=== PATIENT | female | born 1945 | race Caucasian/White ===

== ENCOUNTER → 2018-08-14 16:37 | Outpatient (CLI) | payer MEDICARE, OTHER, SELFPAY ==
--- NOTE | 2018-08-14 16:47 | RAD_ITS ---
STUDY: X-RAY CHEST REASON FOR EXAM: Female, 73 years old. Shortness of breath. TECHNIQUE: Frontal and lateral views of the chest. COMPARISON: None. FINDINGS: The lungs are hyperexpanded. There is no demonstrated pleural abnormality. There is borderline cardiomegaly. Normal mediastinum and cee. Normal visualized pulmonary arteries. Normal visualized aortic arch and descending thoracic aorta. Normal visualized thoracic spine. Normal visualized ribs, clavicles, and shoulders. There is no demonstrated abnormality of the visualized soft tissue structures of the upper abdomen. RAD/Chest PA and Lateral IMPRESSION: Borderline cardiomegaly with hyperexpansion. No acute pathology. Electronically Signed: Albert Chakraborty MD at 17:55 EDT , Service support ,
== END ==
PROVIDERS: Family Provider Internal Medicine; PCP Internal Medicine; Referring Provider Internal Medicine Pulmonary Disease; Visit Provider Internal Medicine Pulmonary Disease
DX: J44.9 Chronic obstructive pulmonary disease, unspecified (principal)
CPT/HCPCS: 71046

== ENCOUNTER → 2018-08-22 07:42 | Outpatient (CLI) | payer MEDICARE, OTHER, SELFPAY ==
--- NOTE | 2018-08-22 07:45 | CT_ITS ---
STUDY: CT ABDOMEN AND PELVIS WITH CONTRAST REASON FOR EXAM: Female, 73 years old. Soft tissue nodule felt by left abdominal area RADIATION DOSAGE (If Supplied By Facility): CTDIvol = ( 10.09 ) mGy, DLP = ( 715.30 ) mGycm TECHNIQUE: Transaxial images were obtained from the dome of the diaphragm to the symphysis pubis without oral contrast. 100 ml of Isovue 300 contrast was administered. Sagittal and coronal images were reconstructed. # of Images: 422 Individualized dose optimization techniques were used for this CT. COMPARISON: None. FINDINGS: The visualized lung bases are unremarkable. The visualized portions of the heart are within normal limits. Normal liver. There are surgical clips in the gallbladder fossa consistent with a prior cholecystectomy. Normal spleen. Normal pancreas. Normal bilateral adrenal glands. There are too small to characterize low-attenuation foci within the kidneys that likely reflect underlying cysts. There is a small hiatal hernia. Normal small intestine. There are diverticula throughout the descending and sigmoid colon. The appendix is visualized and appears normal. Normal abdominal aorta. Normal inferior vena cava. Normal retroperitoneum. Normal urinary bladder. There is a small umbilical hernia containing fat. There are diffuse degenerative changes of the visualized lumbar spine. CT/Abdomen/Pelvis WITH Contrast IMPRESSION: Small fat-containing umbilical hernia. Atherosclerosis. Colonic diverticulosis. Degenerative changes. Small hiatal hernia. Electronically Signed: Isidra Carrasco MD at 16:55 EDT Tel , Service support ,
[2018-08-22 08:36] LABS: CREATININE FINGERSTICK 0.7 mg/dL (0.55-1.02); EGFR FINGERSTICK > 60.0000 mL/min (>60)
== END ==
PROVIDERS: Family Provider Internal Medicine; PCP Internal Medicine; Referring Provider Internal Medicine; Visit Provider Internal Medicine
DX: Z01.812 Encounter for preprocedural laboratory examination (principal); M79.89 Other specified soft tissue disorders
CPT/HCPCS: 74177; Q9967

== ENCOUNTER → 2018-11-09 14:38 | Outpatient (CLI) | payer MEDICARE, OTHER, SELFPAY ==
--- NOTE | 2018-11-09 14:42 | BI_ITS ---
MAMMOGRAPHY - BILATERAL SCREENING REASON FOR EXAM: Female, 73 years old. Routine annual screening examination. PERTINENT HISTORY: Non-contributory. TECHNIQUE: Digital bilateral breast [place] (3D mammographic acquisition) in the CC and MLO projections. 2-D mediolateral oblique (MLO) and craniocaudad (CC) views of both breasts were obtained. CAD: Full Field Digital Mammography with Computer Added Detection was performed. COMPARISON: Comparison is made with prior outside examination dated May 26, 2013 and November 09, 2015 FINDINGS: Breast Composition: There are scattered areas of fibroglandular density. There are no dominant masses or suspicious calcifications. Stable small bilateral axillary lymph nodes. No other significant abnormalities are identified. There has been no significant change since the prior study. BI/SCREENING MAMM (CAD), BILAT IMPRESSION: Stable bilateral screening mammogram. Yearly follow-up mammogram recommended. (A) ASSESSMENT CATEGORY: BIRADS Category 2: Benign. A letter regarding these results will be sent to the patient by the facility within 30 days. Approximately 10% of breast cancers are not detected by mammography. A normal mammogram should not delay biopsy of a clinically suspicious abnormality. [id number] Electronically Signed: Amado Soares MD at 15:10 EST Tel [phone], Service support ,
== END ==
PROVIDERS: Family Provider Internal Medicine; PCP Internal Medicine; Referring Provider Internal Medicine; Visit Provider Internal Medicine
DX: Z12.31 Encounter for screening mammogram for malignant neoplasm of breast (principal)
CPT/HCPCS: 77063; 77067

== ENCOUNTER → 2019-06-11 14:31 | Outpatient (CLI) | payer MEDICARE, SELFPAY ==
--- NOTE | 2019-06-11 14:43 | RAD_ITS ---
STUDY: X-RAY - PELVIS AND BILATERAL HIPS REASON FOR EXAM: Female, 74 years old. Bilateral hip pain. TECHNIQUE: AP view of the pelvis.? 2 views of the right hip, and 2 views of the left hip were obtained. COMPARISON: None. FINDINGS: There is a non-specific bowel gas pattern. Normal visualized soft tissue structures. Normal bilateral iliac wings, sacroiliac joints and visualized sacrum. Normal bilateral superior and inferior pubic rami. Normal pubic symphysis. Normal bilateral ischial tuberosities. Normal visualized right femoral head. Normal right acetabulum. Normal right hip joint. Normal visualized left femoral head. Normal left acetabulum. Normal left hip joint. RAD/Hips B/L min 2 views w/ Pelvis IMPRESSION: Normal x-ray examination of the pelvis and bilateral hips. Electronically Signed: Aly Porras MD at 17:05 EDT , Service support ,
== END ==
PROVIDERS: Family Provider Internal Medicine; PCP Internal Medicine
DX: M25.551 Pain in right hip (principal); M25.552 Pain in left hip
CPT/HCPCS: 73521

== ENCOUNTER 2019-07-18 13:23 | Observation (INO) | payer MEDICARE, SELFPAY ==
[2019-07-18] VITALS (9 sets, daily range): BP systolic 104–141; BP diastolic 65–104; PULSE 59–91; RESP 12–16; TEMP 36.4–36.9; O2SAT 95–100; BMI 28.5; BMI 28.6; BMI 28.4
--- NOTE | 2019-07-18 13:48 | RAD_ITS ---
STUDY: X-RAY CHEST REASON FOR EXAM: Female, 74 years old. Possible TIA. TECHNIQUE: PA and lateral views of the chest. COMPARISON: Comparison is made with prior study dated August 14, 2018. FINDINGS: EKG electrodes are seen. Hyperinflation. The lungs are clear. There is no demonstrated pleural abnormality. There is borderline cardiomegaly. Normal mediastinum and cee. Normal visualized pulmonary arteries. There is atherosclerotic calcification of the aortic arch with tortuosity. There are diffuse degenerative changes of the visualized thoracic spine. Normal visualized ribs, clavicles, and shoulders. There is no demonstrated abnormality of the visualized soft tissue structures of the upper abdomen. RAD/Chest PA and Lateral IMPRESSION: Hyperinflation. No acute abnormality is seen. Electronically Signed: Aamdo Soares, at 14:57 EDT , Service support ,
--- NOTE | 2019-07-18 13:48 | CT_ITS ---
STUDY: CT BRAIN WITHOUT CONTRAST REASON FOR EXAM: Female, 74 years old. Amnesia. Loss of bladder control. RADIATION DOSAGE (If Supplied By Facility): CTDIvol = ( 44.99 ) mGy, DLP = ( 745.49 ) mGycm TECHNIQUE: Transaxial CT imaging of the brain was performed without administration of intravenous contrast material. Individualized dose optimization techniques were used for this CT. COMPARISON: No relevant priors. FINDINGS: Normal soft tissue structures. Normal calvarium. There is mild cerebral atrophy with widening of the extra-axial spaces and ventricular dilatation. Normal white matter tracts of the cerebral hemispheres. Normal basal ganglia and thalami. Normal brainstem. Normal cerebellum. There is no intracranial hemorrhage. There are no findings of an acute ischemic infarction. Atherosclerotic calcification of the cavernous portions of the internal carotid arteries bilaterally. Mild mucosal thickening of the left sphenoid sinus. CT/Brain/Head without Contrast IMPRESSION: Chronic involutional changes of the brain. Mild degree of mucosal thickening of the left sphenoid sinus. Electronically Signed: Amado Soares, at 15:00 EDT , Service support ,
--- NOTE | 2019-07-18 13:48 | EKG12_ITS ---
Test Reason : NEURO S/SX Blood Pressure : / mmHG Vent. Rate : 069 BPM Atrial Rate : 069 BPM P-R Int : 152 ms QRS Dur : 092 ms QT Int : 428 ms P-R-T Axes : 037 -19 016 degrees QTc Int : 458 ms Normal sinus rhythm Normal ECG Confirmed by JAMES SWIFT, CAROLA ([id number]), clinical editor AMY DEVLIN ([id number]) on 07/22/2019 3:20:02 PM Referred By: Ruben Cervantes Confirmed By:MACY RAMIREZ MD
[2019-07-18 14:07] LABS: Absolute Lymphocyte Count 1.29 X10^3/uL (0.83-4.51); Absolute Neutrophil Count 3.2 X10^3/uL (2.0-7.7); Basophil# 0.04 X10^3/uL; Basophil% 0.8 % (0-1); Eosinophil# 0.23 X10^3/uL; Eosinophils% 4.3 % (0-5); Hematocrit 43.7 % (37-47); Hemoglobin 14.2 g/dL (12.0-15.0); Lymphocyte # 1.29 X10^3/ul (4.0); Lymphocyte % 24.3 % (19-41); Mean Corp Hgb Conc 32.5 g/dL (32-36); Mean Corpuscular Hgb 29.6 pg (27.0-32.0); Mean Corpuscular Volume 91.2 fL (81-99); Mean Platelet Vol. 9.4 fl (6.2-12.0); Monocyte# 0.54 X10^3/uL; Monocyte% 10.2 % (0-10); NRBC Flagged by Analyzer 0 % (0-5); Neutrophil # 3.18 X10^3/uL (2.7-7.7); Platelet Count 215 K/mm3 (150-450); RBC Distribution Width CV 12.9 % (11.6-14.6); RBC Distribution Width SD 43.6 fl (35.1-43.9); Red Blood Count 4.79 M/mm3 (4.2-5.4); White Blood Count 5.3 K/mm3 (4.4-11.0)
[2019-07-18 14:16] LABS: International Normalized Ratio 0.9; Prothrombin Time (Protime)PT. 12.2 SECONDS (11.7-14.9)
[2019-07-18 14:17] LABS: Partial Thromboplast Time 29.8 Seconds (24.1-36.2)
[2019-07-18 14:22] LABS: ALB/GLOB Ratio 1.1 RATIO (0.9-2.4); AST(SGOT) 20 U/L (15-37); Alanine Aminotransfer ALT/SGPT 30 U/L (13-56); Albumin, Serum 3.8 g/dL (3.2-5.0); Alkaline Phosphatase 81 U/L (45-117); Anion Gap 4 (5-15); BUN 12 mg/dL (7-18); Calcium,Total 9.6 mg/dL (8.5-10.1); Chloride 109 mmol/L (98-107); Creatinine, Serum 0.67 mg/dL (0.55-1.02); EST Glomerular Filtration Rate 93 mL/min (>60); Est Glom Filt Rate - Afr Amer 112 mL/min (>60); Estimated Creatinine Clearance 40.22 ml/min; Globulin 3.5 g/dL (2.2-4.2); Glucose 95 mg/dL (74-106); Potassium 3.8 mmol/L (3.5-5.1); Protein, Total 7.3 g/dL (6.4-8.2); Sodium Level 142 mmol/L (136-145)
[2019-07-18 14:55] LABS: Bacteria 0 SEEN /hpf (None Seen); Mucous, Urine 0 SEEN /hpf (<or=2+)
[2019-07-18 15:13] LABS: Color, Urine Yellow (Yellow); Glucose, Dipstick Normal (Normal); Ketone-Dipstick Negative (Negative); Leukocyte Esterase-Dipstick Negative /ul (Negative); Nitrite-Dipstick Negative (Negative); Occult Blood-Urine Negative /ul (Negative); Protein-Dipstick Negative (Negative); Urine Bilirubin Dipstick Negative (Negative); Urine Clarity Clear (Clear); Urine Urobilinogen Normal (Normal)
--- NOTE | 2019-07-18 15:20 | ED.VIS.GEN ---
History of Present Illness Chief Complaint: Neuro S/Sx Informant: Patient Onset: Today Narrative: Patient sent in from PCP office for evaluation of amnesia event occurring this morning. She reports she left at 830 she left to see a natural path physician in [place] for evaluation. Reports she had concerns for thyroid dysfunction reporting 2 weeks ago was seen found to have abnormal function of thyroid and adrenal glands and was going for reevaluation for possible treatment. She states she does not recall driving to the office, also states her had difficulty turning off her car. Reported she was at the office, did not look well, will was dizzy, slid to the ground for which she does not recall. This was reported by Dr. Silva. Patient reports she is unsteady on her gait. However she was able to drive back to the area and be seen by her physician. Reported to me there is 2 other events of this in the last 14 months which was not evaluated. Patient history of rheumatoid arthritis and COPD. No tobacco history reporting she had lung disease as genetic. Only reports fatigue symptoms. Prior similar symptoms: Yes Past Medical History - Allergies and Home Meds Allergies/Adverse Reactions: Allergies aspirin Allergy (Verified 07/18/19 13:24) Shortness of breath metronidazole [From Flagyl] Allergy (Verified 07/18/19 13:24) Abd cramps/diarrhea Sulfa (Sulfonamide Antibiotics) Allergy (Verified 07/18/19 13:24) Other Primary Care Physician: Gertrude Silva DO [Primary Care Provider] - Smoking Status: Never smoker Review of Systems General: Denies: Chills, Fever, Sweats Eyes: Denies: Visual changes - bilaterally, Diplopia ENT: Denies: Rhinorrhea, Sore throat Cardiovascular: Denies: Chest pain, Palpitations Respiratory: Denies: Dyspnea, Cough, Dyspnea on exertion Gastrointestinal: Denies: Abdominal pain, Nausea, Vomiting, Diarrhea, Melena, Hematochezia Genitourinary: Denies: Dysuria, Hematuria, Frequency Musculoskeletal: Denies: Back pain, Extremity Pain Skin: Denies: Rash, Wounds Neurological: Reports: Weakness. Denies: Headache, Numbness Physical Exam Vital Signs/Narrative: Vital Signs Temp Pulse Resp BP Pulse Ox 07/18/19 14:51 64 16 141/104 H 97 07/18/19 13:50 71 12 97 07/18/19 13:25 98.4 F 73 16 136/83 H 97 Inital Vital Signs reviewed: Yes General: Well nourished, Well developed, No Acute Distress Head: Normocephalic, Atraumatic Eyes: Perrl, EOMI ENT: Moist mucous membranes, No rhinorrhea Neck: Supple, Nontender Cardiovascular: Regular rate, Regular rhythm, No murmurs Respiratory: No distress, CTA bilaterally, Chest nontender Abdomen: Soft, Nontender, Nondistended, Normal bowel sounds Back: Nontender, Normal Inspection Extremities: Nontender, No edema Skin: Normal color, No rash Neurological: Alert, Oriented x3, Cranial nerves II-XII grossly intact, Normal Strength, Normal Sensation, - - NIH of 0, cerebellar testing upper and lower normal. Psychological: Normal affect, Normal Mood Diagnostic/Tx/Re-eval Clinical Impression(s) from Imaging Studies Brain CT 07/18/19 13:48 IMPRESSION: Chronic involutional changes of the brain. Mild degree of mucosal thickening of the left sphenoid sinus. Electronically Signed: Amado Soares, at 15:00 EDT , Service support , Chest X-Ray 07/18/19 13:48 IMPRESSION: Hyperinflation. No acute abnormality is seen. Electronically Signed: Amado Soares, at 14:57 EDT , Service support , Abnormal Lab Results 07/18/19 07/18/19 07/18/19 13:58 13:58 13:58 WBC 5.3 RBC 4.79 Hgb 14.2 Hct 43.7 MCV 91.2 MCH 29.6 MCHC 32.5 RDW Std Deviation 43.6 RDW Coeff of Jerardo 12.9 Plt Count 215 MPV 9.4 Immature Gran % (Auto) 0.400 Neut % (Auto) 60.0 Lymph % (Auto) 24.3 Nye % (Auto) 10.2 H Eos % (Auto) 4.3 Baso % (Auto) 0.8 Absolute Neuts (auto) 3.2 Absolute Lymphs (auto) 1.29 Nucleated RBC % 0 PT 12.2 INR 0.9 APTT 29.8 Sodium 142 Potassium 3.8 Chloride 109 H Carbon Dioxide 29.0 Anion Gap 4 L BUN 12 Creatinine 0.67 Estim Creat Clear Calc 40.22 Est GFR (MDRD) Af Amer 112 Est GFR (MDRD) Non-Af 93 BUN/Creatinine Ratio 18.0 Glucose 95 Calcium 9.6 Total Bilirubin 0.30 AST 20 ALT 30 Alkaline Phosphatase 81 Total Protein 7.3 Albumin 3.8 Globulin 3.5 Albumin/Globulin Ratio 1.1 Urine Color Urine Clarity Urine pH Ur Specific [place] Urine Protein Urine Glucose (UA) Urine Ketones Urine Occult Blood Urine Nitrite Urine Bilirubin Urine Urobilinogen Ur Leukocyte Esterase 07/18/19 14:44 WBC RBC Hgb Hct MCV MCH MCHC RDW Std Deviation RDW Coeff of Jerardo Plt Count MPV Immature Gran % (Auto) Neut % (Auto) Lymph % (Auto) Nye % (Auto) Eos % (Auto) Baso % (Auto) Absolute Neuts (auto) Absolute Lymphs (auto) Nucleated RBC % PT INR APTT Sodium Potassium Chloride Carbon Dioxide Anion Gap BUN Creatinine Estim Creat Clear Calc Est GFR (MDRD) Af Amer Est GFR (MDRD) Non-Af BUN/Creatinine Ratio Glucose Calcium Total Bilirubin AST ALT Alkaline Phosphatase Total Protein Albumin Globulin Albumin/Globulin Ratio Urine Color Yellow Urine Clarity Clear Urine pH 7.0 Ur Specific [place] 1.010 Urine Protein Negative Urine Glucose (UA) Normal Urine Ketones Negative Urine Occult Blood Negative Urine Nitrite Negative Urine Bilirubin Negative Urine Urobilinogen Normal Ur Leukocyte Esterase Negative Patient currently no focal neurologic deficits. CT head scan did note mildly dilated ventricles per radiologist In the body of read. Chest x-ray labs urine negative. I spoke with neurologist Dr. Buck discussed her previous incidence also, recommended admission for MRI and EEG. I spoke with hospitalist Dr. Cervantes for admission. - EKG Initial EKG Interpretation: Sinus Rhythm - Sinus rate of 69, no ST change. T wave inversion in leads III. ED Disposition - Plan for ED Patient: Disposition: [facility] Diagnosis: Amnesia Referrals: Gertrude Silva DO [Primary Care Provider] -
[2019-07-18 15:28] LABS: Squamous Epithelial Cells - UA 0-5 SEEN /hpf (5-10)
[2019-07-18 15:29] LABS: Red Blood Cells-Urine 0-5 SEEN /hpf (0-5); Transitional Epithelial - Ur 0-5 SEEN /hpf (0-5); White Blood Cells 0-5 SEEN /hpf (0-5)
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
--- NOTE | 2019-07-18 16:34 | CASEMGMT ---
RN CM Assessment Introduced role of RN CM to patient and patient friend at bedside. Patient states okay to discuss assessment questions with friend at bedside.? Patient is alert, oriented and able?to participate in RN CM Assessment. ?Care providers, pharmacy, and demographics verified. Presentation: Patient seen her physician a cpl weeks ago and found to have abnormal function of thyroid and adrenal glands, was driving to her providers office today to discuss these findings further and does not recall driving there, was dizzy at the office, slid to ground and has unsteady gait. Admit Dx: Amnesia Re-Admit: No Barriers/Issues: None PCP: Gertrude Silva Specialists: Pulm- Dr Card, Arthritis- , Ophth- Dr Aburto Preferred Pharmacy: [facility] Insurance: [facility] A[facility], [facility] Rx Benefit:?Yes with [employer] LNOK: Chriss Lance LW/HPOA: Yes both, made aware not on file at [facility] to bring in to have scanned on file. HPOA- Chriss Lance Living Arrangements:?Lives with her in a SS home, 1 step to enter home. ADL?s: Independent with ambulation and ADLs Transportation: Patient and drives, to transport upon DC DME: Nebulizer, denies any other DME. HHC: None SNF: None Goal: Home and does not think will have any needs, Denies any issues, concerns or questions with DC planning at this time. Aware CM remains available for any emerging needs. DC PLAN: Home with no anticipated needs identified at this time. JOSE LUIS Khan
--- NOTE | 2019-07-18 17:21 | MRI_ITS ---
STUDY: MRI BRAIN WITHOUT CONTRAST REASON FOR EXAM: Female, 74 years old. Confusion, amnesia. TECHNIQUE: Standardized multiplanar fat and water weighted pulse sequences were obtained. COMPARISON: None. FINDINGS: No intracranial mass, mass effect, or midline shift. No hemorrhage, territorial infarct, or acute ischemia. There is mild cerebral atrophy with widening of the extra-axial spaces and ventricular dilatation. Normal white matter tracts of the supratentorial brain. There is no extra-axial fluid accumulation. Normal flow voids within the major intracranial circulation suggesting patency by spin echo criteria. Normal sella turcica, pituitary gland, infundibular stalk, optic chiasm and hypothalamus. Normal basal cisterns. Normal bilateral temporal bones. Mild mucosal thickening in the left maxillary and left sphenoid sinus. Normal calvarium and skull base. Normal visualized soft tissue structures. MRI/Brain without Contrast IMPRESSION: Involutional changes of the brain, as described above. Trace chronic sinusitis. Electronically Signed: Mary Griffiths MD at 20:28 EDT Tel , Service support ,
[2019-07-18] MEDS: Montelukast 10 MG Tablet PO (21:05)
[2019-07-18] MEDS: 0.9% NaCl Peripheral Flush Adult/Peds IV (21:06)
[2019-07-18 21:15] LABS: Bedside Glucose 123 mg/dL (70-110)
[2019-07-19 03:00] VITALS: PULSE 63
[2019-07-19 03:10] VITALS: BP 101/62; PULSE 58; RESP 16; TEMP 36.6; O2SAT 96
[2019-07-19 06:40] LABS: Bedside Glucose 90 mg/dL (70-110)
[2019-07-19 07:03] VITALS: PULSE 54
[2019-07-19] MEDS: Meloxicam 7.5 MG Tablet PO (07:59)
[2019-07-19] MEDS: Hydroxychloroquine 200 MG Tablet PO (07:59)
[2019-07-19 09:10] VITALS: BP 106/74; PULSE 64; RESP 16; TEMP 36.7; O2SAT 96
--- NOTE | 2019-07-19 10:41 | CASEMGMT ---
LW in paper chart, POA form not in echart or paper chart. SW let pt know that we have a copy of living will but not POA. SW encouraged pt to have POA form brought in for us to put on file as able. Pt states understanding. FLOR [place]
--- NOTE | 2019-07-19 11:01 | MRI_ITS ---
STUDY: MRA OF THE HEAD WITHOUT CONTRAST REASON FOR EXAM: Female, 74 years old. Confusion. Transient global amnesia. TECHNIQUE: 3-D udup-jb-hhrmja (TOF) imaging was performed with MIPs. The study was performed unenhanced. COMPARISON: None. FINDINGS: Normal bilateral petrous and cavernous carotid arteries. Normal bilateral anterior cerebral arteries, with no aneurysm, dissection, stenosis or occlusion. Normal intact anterior communicating artery (ACOM). Unremarkable bilateral middle cerebral arteries, with no aneurysm, dissection, stenosis, or occlusion. Normal posterior communicating arteries bilaterally. Normal bilateral vertebral arteries. Normal basilar artery with a normal basilar bifurcation. The visualized bilateral superior cerebellar (SCA) arteries are normal. Normal bilateral P1, P2 and visualized P3 segments of the posterior cerebral arteries. There is no demonstrated aneurysm of the gambell of [place]. There is no major vessel occlusion or significant stenosis. MRI/MRA Head ONLY without Contrast IMPRESSION: Normal MRA of the head Electronically Signed: Mary Griffiths MD at 16:16 EDT Tel , Service support ,
--- NOTE | 2019-07-19 11:01 | MRI_ITS ---
STUDY: MRA NECK WITH AND WITHOUT CONTRAST REASON FOR EXAM: Female, 74 years old. Confusion. Transient global amnesia. TECHNIQUE: 3-D ooig-qz-tastli (TOF) imaging was performed in an 1.5 T MRI scanner. 14 IV Dotarem was administered for the contrast enhanced images. COMPARISON: None. FINDINGS: RIGHT CAROTID ARTERIES: Normal right common carotid artery (CCA). Normal right common carotid bulb. Normal origin of the right internal carotid (ICA) artery without a significant stenosis. Normal visualized cervical portion of the right internal carotid artery. Normal origin of the right external carotid artery (ECA). LEFT CAROTID ARTERIES: Normal left common carotid artery (CCA). Normal left common carotid bulb. Normal origin of the left internal carotid (ICA) artery without a significant stenosis. Normal visualized cervical portion of the left internal carotid artery. Normal origin of the left external carotid artery (ECA). VERTEBRAL ARTERIES: Normal antegrade flow within the bilateral vertebral artery without a hemodynamically significant stenosis. MRI/MRA Neck WITH and W/O Contrast IMPRESSION: Normal bilateral cervical carotid and vertebral arteries. Electronically Signed: Mary Griffiths MD at 16:20 EDT Tel , Service support ,
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
[2019-07-19 11:26] LABS: Bedside Glucose 87 mg/dL (70-110)
--- NOTE | 2019-07-19 11:40 | DCINST_ITS ---
- Discharge Diagnoses Current Active Problems: Current Active and Chronic Problems Rheumatoid arthritis (Chronic) COPD (chronic obstructive pulmonary disease) (Chronic) Transient global amnesia (Acute) You will use the following diet at home:: No restrictions Discharge Activity: Return to Normal Activity Call your doctor if you observe: Shortness of breath, Dizziness, Fainting spells, Chest pain, - - Further amnesia Allergies/Adverse Reactions: Allergies aspirin Allergy (Verified 07/18/19 13:24) Shortness of breath metronidazole [From Flagyl] Allergy (Verified 07/18/19 13:24) Abd cramps/diarrhea Sulfa (Sulfonamide Antibiotics) Allergy (Verified 07/18/19 13:24) Other Medications to take at Discharge Albuterol Inhaler [Ventolin Hfa] 2 puff INHALATION Q6H PRN PRN 07/18/19 Carboxymethylcellulos/Glycerin [Refresh Optive Eye Drops] 2 drp EACH EYE DAILY 07/18/19 Cetirizine HCl [Zyrtec] 10 mg PO DAILY 07/18/19 Cholecalciferol (Vitamin D3) [Vitamin D3] 50,000 unit PO TUFR 07/18/19 Fluticasone/Salmeterol [Advair Hfa 230-21 Mcg Inhaler] 2 puff INHALATION BID 07/18/19 Hydroxychloroquine [Plaquenil] 200 mg PO DAILYCM 07/18/19 Meloxicam [Mobic] 7.5 mg PO DAILY 07/18/19 Montelukast [Singulair] 10 mg PO DAILY 07/18/19 Primary Care Physician: Gertrude Silva DO [Primary Care Provider] - Please follow up with your Primary Care Physician in: 1 Week Test Results: Test results from this visit will be discussed in further detail at your follow- up appointment, if applicable. Please Follow Up With: Patience Be MD When: 6 Weeks Proposed Discharge Date: 07/19/19
--- NOTE | 2019-07-19 13:53 | DS.PCM_ITS ---
Discharge Date and Diagnosis Date of Admission: 07/18/19 Date of Discharge: 07/19/19 - Primary Discharge Diagnosis Active and Suspected Problems 1. Possible transient global amnesia, CVA ruled out 2. Rheumatoid arthritis 3. COPD - Secondary Discharge Diagnosis Chronic Problems Rheumatoid arthritis (Chronic) COPD (chronic obstructive pulmonary disease) (Chronic) Hospital Course and Treatment Imaging Results: Diagnostic Data Brain CT 07/18/19 13:48 IMPRESSION: Chronic involutional changes of the brain. Mild degree of mucosal thickening of the left sphenoid sinus. Electronically Signed: Amado Soares, at 15:00 EDT , Service support , Chest X-Ray 07/18/19 13:48 IMPRESSION: Hyperinflation. No acute abnormality is seen. Electronically Signed: Amado Soares, at 14:57 EDT , Service support , Brain MRI 07/18/19 17:21 IMPRESSION: Involutional changes of the brain, as described above. Trace chronic sinusitis. Electronically Signed: Mary Griffiths MD at 20:28 EDT Tel , Service support , Dr. Be- Neurology Operations: None Procedures: None Summary of Care Provided: The patient is a 74 year old F admitted 07/18/2019 due to amnesia. 1. Suspected transient global amnesia, CVA ruled out. Neurology consulted. Brain CT on admission with chronic changes. Chest x-ray demonstrates hyperinflation, no acute abnormality. Lab work unremarkable. MRI of brain without acute process. MRA of head and neck and EEG pending, these will be reviewed prior to discharge. Follow-up with neurology in 6 weeks. 2. Rheumatoid arthritis-continue home Plaquenil regimen. 3. COPD-no acute exacerbation. 4. Chronic insomnia/fatigue-patient reports she has tried several different medication regimens as well as treatment by Functional [facility] where she reports she is given vitamins/herbs. Recommend further follow up with PCP. General: Alert, Oriented x3, Cooperative HEENT: Atraumatic, PERRLA, EOMI, Normocephalic Neck: Supple, No JVD, Negative Carotid Bruits Lungs: Clear to auscultation, Normal air movement Cardiovascular: Regular rate, Regular Rhythm, Normal S1, Normal S2, No murmurs Abdomen: Bowel Sounds Present, Soft, Non Tender, Non-Distended Extremities: No clubbing, No cyanosis, No edema, Capillary Refill Less than 3 Seconds Skin: No rashes, No breakdown Musculoskeletal: No Tenderness to Palpation of Joints or Extremities Neurological: Cranial nerves II-XII grossly intact, Neuro grossly intact Psych/Mental Status: Normal Affect, Appropriate Patient seen and examined prior to discharge. Physical assessment as noted above. Patient is stable for discharge with follow up recommendations as noted above. This patient was seen by KYREE Nguyễn under the supervision of Dr. Cervantes. - Physical Exam Vital Signs Temp Pulse Resp BP Pulse Ox 98.1 F 64 16 106/74 96 07/19/19 09:10 07/19/19 09:10 07/19/19 09:10 07/19/19 09:10 07/19/19 09:10 Oxygen Delivery Method Room Air Weight: 155 lb 6.814 oz Body Mass Index (BMI) 28.4 Intake and Output for Last 24 Hours 07/17/19 07/18/19 07/19/19 23:59 23:59 23:59 Intake Total 470 / 470 1040 / 1040 Balance 470 / 470 1040 / 1040 Laboratory Tests Past 24 Hrs 07/18/19 07/18/19 07/18/19 13:58 13:58 13:58 WBC 5.3 RBC 4.79 Hgb 14.2 Hct 43.7 MCV 91.2 MCH 29.6 MCHC 32.5 RDW Std Deviation 43.6 RDW Coeff of Jerardo 12.9 Plt Count 215 MPV 9.4 Immature Gran % (Auto) 0.400 Neut % (Auto) 60.0 Lymph % (Auto) 24.3 [place] % (Auto) 10.2 H Eos % (Auto) 4.3 Baso % (Auto) 0.8 Absolute Neuts (auto) 3.2 Absolute Lymphs (auto) 1.29 Nucleated RBC % 0 PT 12.2 INR 0.9 APTT 29.8 Sodium 142 Potassium 3.8 Chloride 109 H Carbon Dioxide 29.0 Anion Gap 4 L BUN 12 Creatinine 0.67 Estim Creat Clear Calc 40.22 Est GFR (MDRD) Af Amer 112 Est GFR (MDRD) Non-Af 93 BUN/Creatinine Ratio 18.0 Glucose 95 Calcium 9.6 Total Bilirubin 0.30 AST 20 ALT 30 Alkaline Phosphatase 81 Total Protein 7.3 Albumin 3.8 Globulin 3.5 Albumin/Globulin Ratio 1.1 Urine Color Urine Clarity Urine pH Ur Specific [place] Urine Protein Urine Glucose (UA) Urine Ketones Urine Occult Blood Urine Nitrite Urine Bilirubin Urine Urobilinogen Ur Leukocyte Esterase Urine RBC Urine WBC Ur Squamous Epith Cells Ur Transition Epith Cell Urine Bacteria Urine Mucus 07/18/19 14:44 WBC RBC Hgb Hct MCV MCH MCHC RDW Std Deviation RDW Coeff of Jerardo Plt Count MPV Immature Gran % (Auto) Neut % (Auto) Lymph % (Auto) [place] % (Auto) Eos % (Auto) Baso % (Auto) Absolute Neuts (auto) Absolute Lymphs (auto) Nucleated RBC % PT INR APTT Sodium Potassium Chloride Carbon Dioxide Anion Gap BUN Creatinine Estim Creat Clear Calc Est GFR (MDRD) Af Amer Est GFR (MDRD) Non-Af BUN/Creatinine Ratio Glucose Calcium Total Bilirubin AST ALT Alkaline Phosphatase Total Protein Albumin Globulin Albumin/Globulin Ratio Urine Color Yellow Urine Clarity Clear Urine pH 7.0 Ur Specific [place] 1.010 Urine Protein Negative Urine Glucose (UA) Normal Urine Ketones Negative Urine Occult Blood Negative Urine Nitrite Negative Urine Bilirubin Negative Urine Urobilinogen Normal Ur Leukocyte Esterase Negative Urine RBC 0-5 SEEN Urine WBC 0-5 SEEN Ur Squamous Epith Cells 0-5 SEEN Ur Transition Epith Cell 0-5 SEEN Urine Bacteria 0 SEEN Urine Mucus 0 SEEN POC Glucose 07/19/19 07/19/19 07/18/19 11:22 06:36 21:04 POC Glucose 87 90 123 H Discharge Diet: No Restrictions Discharge Activity: Return to Normal Activity Call your doctor if you observe: Shortness of breath, Dizziness, Fainting spells, Chest pain, - - Further amnesia Home Medications: Medications to take at Discharge Albuterol Inhaler [Ventolin Hfa] 2 puff INHALATION Q6H PRN PRN 07/18/19 Carboxymethylcellulos/Glycerin [Refresh Optive Eye Drops] 2 drp EACH EYE DAILY 07/18/19 Cetirizine HCl [Zyrtec] 10 mg PO DAILY 07/18/19 Cholecalciferol (Vitamin D3) [Vitamin D3] 50,000 unit PO TUFR 07/18/19 Fluticasone/Salmeterol [Advair Hfa 230-21 Mcg Inhaler] 2 puff INHALATION BID 07/18/19 Hydroxychloroquine [Plaquenil] 200 mg PO DAILYCM 07/18/19 Meloxicam [Mobic] 7.5 mg PO DAILY 07/18/19 Montelukast [Singulair] 10 mg PO DAILY 07/18/19 Primary Care Physician: Gertrude Silva DO [Primary Care Provider] - Please follow up with your Primary Care Physician in: 1 Week Please Follow Up With: Patience Be MD When: 6 Weeks Disposition: Home Minutes spent on discharge:: 35 Patient Condition:: Stable Medical Necessity - Tobacco Use Smoking Status: Never smoker Tobacco Use: Non-smoker, Secondhand Meaningful Use Info Meaningful Use Diagnoses (Choose all that apply): None applicable
--- NOTE | 2019-07-19 14:05 | EEG ---
- Electroencephalogram Date of service 07/19/2019 History EEG is being done in this 74 yr F to rule out seizures EEG Description: This is an 18 channel EEG with 10-20 lead placement system. Bipolar montages, and Referential montages were reviewed. Photic stimulation and Hyperventilation were performed. The posterior dominant rhythm is 9 HZ synchronous, symmetric, reacting to eye opening and closing. Photo stimulation elicited normal driving response but no abnormal photoparoxysmal response, Hyperventilation did not elicit any abnormal photoparoxysmal response. Sleep was identified. There is no abnormal background slowing noted. There was no epileptiform discharges or electrographic seizures noted during this recording. Muscle artefact and EKG artefact noted. EEG Interpretation This is a normal awake and asleep EEG. There is no epileptiform discharges or electrographic seizures noted during the record.
[2019-07-19 14:16] VITALS: BP 114/71; PULSE 61; RESP 16; TEMP 36.7; O2SAT 97
[2019-07-19 14:19] VITALS: PULSE 68
--- NOTE | 2019-07-19 14:43 | CHAPLAIN ---
two attempts made for visit; gave a brief hello as patient is wheeled away for testing
== END 2019-07-19 11:42 | disposition home or self-care (01) ==
LOC: ED 15:26 → PCU 15:36
PROVIDERS: Admitting Provider Internal Medicine; Emergency Provider Emergency Medicine; Family Provider Internal Medicine; PCP Internal Medicine; Referring Provider Internal Medicine; Visit Provider Internal Medicine
DX: G45.4 Transient global amnesia (principal); M06.9 Rheumatoid arthritis, unspecified; J44.9 Chronic obstructive pulmonary disease, unspecified; Z79.899 Other long term (current) drug therapy; R94.6 Abnormal results of thyroid function studies; R42 Dizziness and giddiness; R26.81 Unsteadiness on feet; R53.83 Other fatigue; R29.700 NIHSS score 0
CPT/HCPCS: 70450; 70544; 70549; 70551; 71046; 80053; 81001; 82962; 85025; 85610; 85730; 93005; 95819; 99218; 99285; A9575; A4216; G0378

== ENCOUNTER 2019-10-14 08:30 | Outpatient (RCR) | payer MEDICARE, SELFPAY ==
[2019-07-18 16:15] VITALS: BMI 28.4
--- NOTE | 2019-09-13 08:21 | HP.PTEVAL ---
Patient's Visit Information NEY WEINBERG is a 74 year old F referred to Physical Therapy by Gertrude Silva DO with a diagnosis of Bilateral Hip Bursitis. Date of Evaluation: 09/13/19 Physical Therapist: Leonie Dow DPT - Visit Plan Frequency: 2x /Week Duration: 4 Weeks Plan: Aquatic Therapy- focus on LE and core s/s (Caution right shoulder issue from previous injury) - Subjective Findings: Patient reports that she has RA-in the last 5 years she has had a lot of problems with her hips. She thought it was the joint but was diagnosed with bursa. Dr. Silva did 2 injections on each hip which has helped. She also has a lot of problems with her feet. The injections helped a lot. Feels that she is 98% since the injetions. The pain is located in the greater toch and radiates tot he knees- but then feels like she is sitting in marbles but could not find the trigger points to release them. Has no more hip pain since the injections. Denies any lumbar problems. Describes the pain as sharp/shooting. Agg: stairs, twisting, walking and any movement. Eases: injections, uses joint flex. Worst: 10/10 Best: 0/10. She took Prednisone for a couple of weeks about 9 months ago to get her out of a really bad flare. OA in the long bones but does not report N/T in the LE. Sleep: hard to get comfortable and wakes her up- side and stomach sleeper. Work: retired about a year ago. Likes to garden. Has had OA since she was 42 years old so she knows how important it is to continue movement. PMHx: RA, OA, COPD Meds:Zyrtec, Meloxicam, Plaquinil, Omeprozol - Objective Posture: FH, RS- guarded. Gait: no significant LE deviation noted- decreased trunk rotation and arm swing. HR/TR: able with full ROM-requires UE A for balance. SLS: Left: 4 seconds Right: 2 seconds. ROM: Lumbar: flexion: hands to knees with cavitation from her left hip-no pain. Extn: WFL, SB and rotation: WFL bilaterally with no pain. Hip/Knee/Ankle: WFL in all planes. Sensation/Reflex: WNL/2+. Strength: Ankle: 5/5 DF/PF, Knee: 4+/5, Hip: Flexion: 4-/5, Extn: 4/5, Abd/Add: 4/5, IR/ER: 4-/5. Core: poor. Flex: HS: mild Gastroc: moderat. [place]patoin: tender along greater troch and ITBand to the knee. Special Test: TJ:positive, Slump: negative, SLR: negative, Dural Signs: negative - Goals Goal 1:: Patient will be I with HEP and progression Goal Time Frame: 4-6 Weeks Goal 2:: Patient will maintain proper posture t/o tx session to demo increased core s/s. Goal Time Frame: 4-6 Weeks Goal 3:: Patient will ambulate >300 feet with normal gait pattern and no guarding Goal Time Frame: 4-6 Weeks Goal 4:: Patient will report 0/10 pain for 1 week Goal Time Frame: 4-6 Weeks Goal 5:: Patient will report sleeping through the night for 1 week Goal Time Frame: 4-6 Weeks - Rehabilitation Potential Physical Therapy Diagnosis: Patient presents with hypomobility- she has decreased ROM, strength and muscular endurance leading to poor posture and increased pain with ADL's. Rehabilitation Potential: Fair - Anticipated Interventions Patient/Client Instruction: Educate patient on: Benefits of Fitness Program Therapeutic Exercise to Include: Strength training, Endurance training, Balance training, Body mechanics, Postural training, Flexibilty training, Gait and locomotor training, In an aquatic setting, Dynamic Lumbar Stabilization For the Purpose of:: To improve muscle performance and motor function Thank you for the opportunity to evaluate your patient. For Medicare and Medicare HMO plans, please review the plan of care and approve it. It will need to be FAXED BACK to us at [phone] for Medicare purposes. For Medicare only, by signing this I certify the plan of care. Please let me know if there are questions or concerns regarding this plan of care. Physician Signature: Date:
--- NOTE | 2019-10-14 08:49 | HP.PTDCSUM ---
HP - PT D/C Summary It has been my pleasure to treat NEY WEINBERG under orders from Gertrude Silva DO, for the diagnosis of Bilateral Hip Bursitis for a total of 8 visit(s). Discharge Date: Please see the following information for a summary of their discharge status. - Subjective Subjective: Patient reports that she is better- She attempted to do exericses on the land and experienced its harder to get them done without the water. Hip pain is a 4/10- normal level is a 6/10- when they reach 9/10 she does injections. Does feel that she can do independently. - Pain Hip Pain Intensity (Out of 10): 4 - Overall Improvement % Improvement: 100 - Objective Objective/Function: Posture: fair in a hard back chair. Gait: no significant LE deviation noted- decreased trunk rotation and arm swing. HR/TR: able with full ROM-requires UE A for balance. SLS: Left: 8 seconds Right: 6 seconds. ROM: Lumbar: flexion: hands to knees . Extn: WFL, SB and rotation: WFL bilaterally with no pain. Hip/Knee/Ankle: WFL in all planes. Sensation/Reflex: WNL/2+. Strength: Ankle: 5/5 DF/PF, Knee: 5/5, Hip: Flexion: 4/5, Extn: 4+/5, Abd/Add: 4+/5, IR/ER: 4/5. Core: fair plus. Flex: HS: mild Gastroc: moderat. Palpatoin: tender along greater troch and ITBand to the knee. Special Test: TJ:positive, Slump: negative, SLR: negative, Dural Signs: negative - Goals Goal 1:: Patient will be I with HEP and progression Goal Progress: Goal Met Goal 2:: Patient will maintain proper posture t/o tx session to demo increased core s/s. Goal Progress: Progressing Goal 3:: Patient will ambulate >300 feet with normal gait pattern and no guarding Goal Progress: Progressing Goal 4:: Patient will report 0/10 pain for 1 week Goal Progress: Progressing Goal 5:: Patient will report sleeping through the night for 1 week Goal Progress: Progressing - Plan Plan: Discharge to [facility] with [facility] - D/C Information If there are questions or concerns regarding this patient's physical therapy, please feel free to call me at [phone]. Thank you for the referral of this patient. Sincerely, KENNETH GaleanoT
== END 2019-10-14 19:00 | disposition home or self-care (01) ==
LOC: PT 08:30
PROVIDERS: Family Provider Internal Medicine; PCP Internal Medicine; Referring Provider Internal Medicine; Visit Provider Internal Medicine
DX: M76.01 Gluteal tendinitis, right hip (principal); M76.02 Gluteal tendinitis, left hip; M62.838 Other muscle spasm
CPT/HCPCS: 97113; 97162; 97164; 97530

== ENCOUNTER → 2019-12-03 08:48 | Outpatient (CLI) | payer MEDICARE, OTHER, SELFPAY ==
[2019-07-18 16:15] VITALS: BMI 28.4
[2019-12-03 10:09] LABS: Hematocrit 41.7 % (37-47); Hemoglobin 13.6 g/dL (12.0-15.0); Mean Corp Hgb Conc 32.6 g/dL (32-36); Mean Corpuscular Hgb 30.4 pg (27.0-32.0); Mean Corpuscular Volume 93.1 fL (81-99); Mean Platelet Vol. 9.6 fl (6.2-12.0); Platelet Count 202 K/mm3 (150-450); RBC Distribution Width CV 13.5 % (11.6-14.6); RBC Distribution Width SD 46.5 fl (35.1-43.9); Red Blood Count 4.48 M/mm3 (4.2-5.4); White Blood Count 4.2 K/mm3 (4.4-11.0)
[2019-12-03 10:42] LABS: Ferritin 78 ng/mL (8-252); Iron 66 ug/dL (50-170); Iron Binding Capacity,Total 339 ug/dL (250-450); PERCENT IRON SATURATION 19.5 % (15.0-55.0); T4 Free Direct 0.86 ng/dL (0.76-1.46); Thyroid Stim Hormone (TSH) 3.02 uIU/mL (0.358-3.74)
[2019-12-03 10:48] LABS: Vitamin B12 549 pg/mL (211-911); Vitamin D,25 Hydroxy 30.9 ng/mL (29.95-100.01)
[2019-12-06 14:08] LABS: Testosterone, % Free 2.61 % (0.50-2.80); Testosterone, Free < 0.08 ng/dL (0.10-0.85); Testosterone, Total < 3 ng/dL (3-41)
[2019-12-06 19:25] LABS: Zinc, Plasma or Serum 102 ug/dL (56-134)
== END ==
PROVIDERS: PCP Internal Medicine; Referring Provider Dermatology; Visit Provider Dermatology
DX: L65.9 Nonscarring hair loss, unspecified (principal); Z13.21 Encounter for screening for nutritional disorder
CPT/HCPCS: 36415; 82306; 82607; 82627; 82652; 82728; 82746; 83540; 83550; 84402; 84403; 84439; 84443; 84630; 85027; 86038; 82626

== ENCOUNTER → 2019-12-16 10:47 | Outpatient (CLI) | payer MEDICARE, SELFPAY ==
[2019-07-18 16:15] VITALS: BMI 28.4
--- NOTE | 2019-12-16 10:50 | RAD_ITS ---
STUDY: X-RAY - RIGHT KNEE REASON FOR EXAM: Lateral knee pain, fall. TECHNIQUE: 2 view(s) of the knee. COMPARISON: None. FINDINGS: Normal visualized distal femur. Normal visualized proximal tibia. There is a suspected sessile osteochondroma of the medial aspect of the proximal fibula. Normal proximal tibiofibular articulation. Normal medial femorotibial compartment. Normal lateral femorotibial compartment. Normal patellofemoral articulation. The soft tissue structures are unremarkable. RAD/Knee 1 or 2 Views IMPRESSION: Suspected sessile osteochondroma of the proximal fibula. Otherwise, unremarkable x-ray examination of the right knee. Electronically Signed: Kojo Muñiz MD at 15:31 EST Tel , Service support ,
== END ==
PROVIDERS: PCP Internal Medicine; Referring Provider Internal Medicine; Visit Provider Internal Medicine
DX: M25.561 Pain in right knee (principal)
CPT/HCPCS: 73560

== ENCOUNTER → 2020-07-14 09:34 | Outpatient (CLI) | payer MEDICARE, OTHER, SELFPAY ==
[2019-07-18 16:15] VITALS: BMI 28.4
--- NOTE | 2020-07-14 10:45 | MRI_ITS ---
STUDY: MRI BRAIN WITH AND WITHOUT CONTRAST (ATTENTION INTERNAL AUDITORY CANALS - I.A.C.''s) REASON FOR EXAM: Female, 75 years old. Hearing loss bilat , sudden onset, no tinnitus TECHNIQUE: Standardized multiplanar fat and water weighted pulse sequences were obtained. IV Dotarem 15ml was administered for the contrast portion of the examination. COMPARISON: MRI brain without contrast 07/18/2019. FINDINGS: Normal bilateral temporal bones. Normal bilateral internal auditory canals. There is no demonstrated intracanalicular or cisternal vestibular schwannoma (acoustic neuroma). There is no enhancement of the bilateral VIIth or VIIIth cranial nerves. Normal bilateral cochlea, vestibules and semicircular canals. Normal size of the ventricles and extra-axial spaces for the patient''s age. Normal white matter tracts of the supratentorial brain. Normal bilateral basal ganglia. Normal thalami. Normal flow voids within the major intracranial circulation suggesting patency by spin echo criteria. Normal venous enhancement. There is no enhancing intra-axial or extra-axial abnormality. There is no extra-axial fluid accumulation. Normal sella turcica, pituitary gland, infundibular stalk, optic chiasm and hypothalamus. Normal tectal plate and pineal gland. Normal midbrain, pauline and medulla. Normal cerebellum. Normal basal cisterns. No demonstrated orbital abnormality, within the constraints of a routine brain study. Normal visualized paranasal sinuses. Normal calvarium and skull base. Normal visualized soft tissue structures. Normal visualized upper cervical spine. MRI/Brain W/WO Contrast IMPRESSION: 1. Normal unenhanced and enhanced MRI of the bilateral internal auditory canals (I.A.C''s). 2. No significant interval change when compared to 07/18/2019. Electronically Signed: Grey Collins MD at 13:01 EDT , Service support ,
[2020-07-14 11:26] LABS: CREATININE FINGERSTICK 0.7 mg/dL (0.55-1.02); EGFR FINGERSTICK > 60.0000 mL/min (>60)
== END ==
PROVIDERS: PCP Internal Medicine; Referring Provider Otolaryngology; Visit Provider Otolaryngology
DX: H91.93 Unspecified hearing loss, bilateral (principal)
CPT/HCPCS: 70553; A9575

== ENCOUNTER → 2020-08-07 09:00 | Outpatient (CLI) | payer MEDICARE, OTHER, SELFPAY ==
[2019-07-18 16:15] VITALS: BMI 28.4
== END ==
PROVIDERS: PCP Internal Medicine; Referring Provider Otolaryngology; Visit Provider Otolaryngology
DX: Z11.59 Encounter for screening for other viral diseases (principal)
CPT/HCPCS: 87635; C9803; U0003

== ENCOUNTER 2020-08-31 06:11 | Emergency (ER) | payer MEDICARE, OTHER, SELFPAY ==
[2019-07-18 16:15] VITALS: BMI 28.4
[2020-08-31 06:11] VITALS: BP 140/72; PULSE 68; RESP 18; TEMP 36.3; O2SAT 96; BMI 31.8
--- NOTE | 2020-08-31 06:45 | ED.DCSUM_ITS ---
- ER Visit Summary Date of Service: 08/31/20 Chief Complaint: Right groin pain History of Present Illness: The patient is a 75 F who presents with right groin pain that began yesterday. Patient states her pain is constant dull ache. Patient states it is sharp whenever she stands. Patient states her pain is worse with any movement of her right leg. Patient states it is better when she is laying flat. Patient denies any radiation of the pain. Patient denies any trauma or injury. Patient has a history of rheumatoid arthritis and tendinitis but states this feels different than her tendinitis pain. Physical Examination: Vital signs are stable. Patient is afebrile. Patient is in no acute distress. Oral mucosa is pink and moist. Neck is supple. Trachea is midline. There is no JVD. Heart was regular rate and rhythm. Lungs are clear and equal bilaterally. Abdomen is soft. Bowel sounds are normal. There is no tenderness. Musculoskeletal exam reveals tenderness over the right hip. There is no pain with internal and external rotation of the right hip. There is pain with flexion and extension of the hip. Femoral and pedal pulses are equal bilaterally. Strength is 5/5 bilaterally in the lower extremities. There are no sensory deficits noted. Test Results: X-rays of the right hip were obtained. There is no acute fracture noted. These were interpreted by the radiologist and reviewed by myself. Emergency Department Course and Treatment: Patient was given a dose of [place] here. Patient states her pain is improving. Patient was given crutches. Patient was instructed to bear as much weight as she can tolerate. Patient was instructed to ice and elevate the right hip. Patient was given a prescription for a short course of Percocet. Patient was instructed to follow-up with her primary care physician in 5 to 7 days. Patient understood and was agreeable with the plan. All questions were answered. Disposition: Discharge home Impression: Right hip pain This note was generated with [employer] dictation software. It may contain incorrect words, spelling, and punctuation that were not noted in review of the chart prior to signing ED Disposition - Plan for ED Patient: Disposition: Home or Assisted Living Diagnosis: Right hip pain Instructions: ED Sprain Hip, ED RICE Prescriptions: Oxycodone HCl/Acetaminophen [Percocet 5/325] 1 tab PO Q6H PRN PRN 3 Days #12 tab PRN Reason: Pain Prescription Printed Referrals: Shira,Gertrude, DO [Primary Care Provider] - 3-5 Days
--- NOTE | 2020-08-31 06:48 | RAD_ITS ---
HISTORY: INJURY PAIN. PT ST - NO TRAUMA? HX R.A. ADDITIONAL HISTORY: None provided. EXAMINATION/TECHNIQUE: XR Hip Unilateral with Pelvis when performed; 2-3 Views Right Number of images including paperwork: 3 COMPARISON: None FINDINGS: BONES: No acute fracture. JOINTS: No subluxation. Mild degenerative changes of the hips. Degenerative changes of the sacroiliac joints, symphysis pubis and visible spine. SOFT TISSUES: No distinct foreign body. RAD/HIP, UNI W/ Pelvis 2-3 Views IMPRESSION: Degenerative changes without acute osseous abnormality. at 0731 Reported and signed by: Wendy Daly MD Electronically Signed: Wendy Daly MD at 7:31 EDT Tel , Service support ,
[2020-08-31] MEDS: HYDROcodone Bitartrate/Apap 5/325 Tablet PO (06:58)
[2020-08-31 09:50] VITALS: PULSE 72; RESP 17; O2SAT 97
== END 2020-08-31 09:56 | disposition home or self-care (01) ==
PROVIDERS: Emergency Provider Emergency Medicine; PCP Internal Medicine
DX: M25.551 Pain in right hip (principal); M06.9 Rheumatoid arthritis, unspecified; J44.9 Chronic obstructive pulmonary disease, unspecified
CPT/HCPCS: 73502; 99283

== ENCOUNTER → 2020-09-29 10:30 | Outpatient (CLI) | payer MEDICARE, OTHER, SELFPAY ==
[2020-08-31 06:11] VITALS: BMI 31.8
[2020-09-29 12:16] LABS: Absolute Lymphocyte Count 0.79 X10^3/uL (0.83-4.51); Basophil# 0.03 X10^3/uL; Basophil% 0.5 % (0-1); Eosinophil# 0.27 X10^3/uL; Eosinophils% 4.7 % (0-5); Hematocrit 42.2 % (37-47); Hemoglobin 13.3 g/dL (12.0-15.0); Lymphocyte # 0.79 X10^3/ul (4.0); Lymphocyte % 13.9 % (19-41); Mean Corp Hgb Conc 31.5 g/dL (32-36); Mean Corpuscular Hgb 29.8 pg (27.0-32.0); Mean Corpuscular Volume 94.4 fL (81-99); Mean Platelet Vol. 9.5 fl (6.2-12.0); Monocyte# 0.58 X10^3/uL; Monocyte% 10.2 % (0-10); NRBC Flagged by Analyzer 0 % (0-5); Neutrophil # 4.01 X10^3/uL (2.7-7.7); Neutrophil % 70.5 % (47-70); Platelet Count 260 K/mm3 (150-450); RBC Distribution Width CV 13.7 % (11.6-14.6); RBC Distribution Width SD 47.1 fl (35.1-43.9); Red Blood Count 4.47 M/mm3 (4.2-5.4); White Blood Count 5.7 K/mm3 (4.4-11.0)
== END ==
PROVIDERS: PCP Internal Medicine; Referring Provider Internal Medicine Pulmonary Disease; Visit Provider Internal Medicine Pulmonary Disease
DX: J44.9 Chronic obstructive pulmonary disease, unspecified (principal)
CPT/HCPCS: 36415; 85025

== ENCOUNTER 2021-11-29 12:03 | Outpatient (CLI) | payer MEDICARE, OTHER, SELFPAY ==
--- NOTE | 2021-11-29 12:08 | BI_ITS ---
MAMMOGRAPHY - BILATERAL SCREENING REASON FOR EXAM: Female, 76 years old. Routine annual screening examination. PERTINENT HISTORY: Non-contributory. TECHNIQUE: Digital bilateral breast tim (3D mammographic acquisition) in the CC and MLO projections. 2-D mediolateral oblique (MLO) and craniocaudad (CC) views of both breasts were obtained. CAD: Full Field Digital Mammography with Computer Added Detection was performed. COMPARISON: Comparison is made with prior study dated 11/09/2018. FINDINGS: Breast Composition: There are scattered areas of fibroglandular density. There are no dominant masses or suspicious calcifications. Stable small benign-appearing bilateral axillary lymph nodes. No other significant abnormalities are identified. There has been no significant change since the prior study. BI/SCRN MAMM (CAD)W/TIM BILAT IMPRESSION: Stable bilateral screening mammogram. Yearly follow-up mammogram recommended. (A) ASSESSMENT CATEGORY: BIRADS Category 2: Benign. A letter regarding these results will be sent to the patient by the facility within 30 days. Approximately 10% of breast cancers are not detected by mammography. A normal mammogram should not delay biopsy of a clinically suspicious abnormality. [id number] Electronically Signed: Amado Soares MD at 12:49 EST , Service support ,
== END 2021-11-29 23:59 | disposition short-term general hospital (02) ==
LOC: OPBI 12:06
PROVIDERS: PCP Internal Medicine; Referring Provider Internal Medicine; Visit Provider Internal Medicine
DX: Z12.31 Encounter for screening mammogram for malignant neoplasm of breast (principal)
CPT/HCPCS: 77063; 77067

== ENCOUNTER → 2023-01-23 | Outpatient (CLI) | payer MEDICARE, OTHER, SELFPAY ==
--- NOTE | 2023-01-24 12:13 | PFT ---
INTRODUCTION: The patient is a 77-year-old female that presents for pulmonary function studies secondary to a diagnosis of COPD. Respiratory therapy reported good patient effort. Bronchodilators were used during testing. INTERPRETATION: Forced expiration spirometry demonstrates the presence of a mild large airways obstructive ventilatory defect. There was a partial, albeit, technically nonsignificant response to aerosolized bronchodilators. Spirograms are of fair quality but do not plateau indicating slow emptying of the lungs. Body plus tomography was performed and revealed lung volumes to be within normal limits. Diffusing capacity by single breath CO was within normal limits. IMPRESSION: Irreversible mild large airways obstructive ventilatory defect.
== END | disposition home or self-care (01) ==
LOC: PSN 08:10
PROVIDERS: PCP Internal Medicine; Visit Provider Internal Medicine
DX: J44.9 Chronic obstructive pulmonary disease, unspecified (principal)
CPT/HCPCS: 94060; 94726; 94729

== ENCOUNTER → 2023-02-17 | Outpatient (CLI) | payer MEDICARE, OTHER, SELFPAY ==
--- NOTE | 2023-02-17 07:41 | CT_ITS ---
INDICATION: Difficulty breathing, exposure to coal dust EXAMINATION: CT CHEST WITHOUT CONTRAST - CT Chest W/O Contrast Injection TECHNIQUE: Helically acquired images were obtained of the chest. A radiation dose optimization technique was used for this scan. IV Contrast dosage and agent: None. COMPARISON: Previous plain films FINDINGS: LUNGS, PLEURA AND LARGE AIRWAYS: No masses, consolidation, or edema. No pleural effusion or thickening. No pneumothorax. THYROID: No thyroid lesions. HEART AND PERICARDIUM: Heart size is normal. No pericardial effusion. CORONARY ARTERIES: Punctate coronary artery calcifications noted. VESSELS: Thoracic aorta is not dilated. MEDIASTINUM AND JOSY: No suspicious mediastinal or hilar adenopathy. There is a small retrocardiac hiatal hernia with thickening of the distal esophagus suggesting reflux esophagitis. Hyperdensities within the proximal stomach likely represent ingested medication UPPER ABDOMEN: Limited cuts through the upper abdomen show previous cholecystectomy and a simple 1 cm exophytic cyst on the left kidney. No specific follow-up needed BONES: Bony structures show degenerative change CT/Chest without Contrast IMPRESSION: No acute pulmonary process. No significant interstitial changes, no pleural thickening no small airways inflammation. Punctate coronary artery calcifications No suspicious adenopathy Degenerative bony changes Electronically Signed: Emanuel Odell MD at 8:15 EDT Reading Location ID and State: [address] [place] [address] , Service support ,
== END | disposition home or self-care (01) ==
LOC: CT 07:18
PROVIDERS: PCP Internal Medicine; Visit Provider Internal Medicine
DX: J45.909 Unspecified asthma, uncomplicated (principal); Z57.2 Occupational exposure to dust
CPT/HCPCS: 71250

== ENCOUNTER → 2023-03-13 | Outpatient (CLI) | payer MEDICARE, OTHER, SELFPAY ==
--- NOTE | 2023-03-13 14:57 | RAD_ITS ---
EXAM: XR ABDOMEN, 2 VIEWS AND XR CHEST, 1 VIEW CLINICAL INDICATION: None provided. PAIN TECHNIQUE: Frontal view of the chest, frontal view of the abdomen/pelvis and upright or decubitus view of the abdomen. COMPARISON: No relevant prior studies available. FINDINGS: CHEST: LUNGS AND PLEURAL SPACES: Unremarkable. No consolidation or edema. No pneumothorax. No effusion. HEART: Enlarged heart. MEDIASTINUM: Central airways and mediastinal contour are unremarkable. ABDOMEN: INTRAPERITONEAL SPACE: No free air. GASTROINTESTINAL TRACT: Unremarkable. Non-obstructive. No bowel or stomach distention. ORGANS: The gallbladder is surgically absent. No organomegaly. No abnormal calcifications. TUBES, LINES AND DEVICES: None. BONES/JOINTS: Degenerative findings of the lumbar spine. SOFT TISSUES: No acute findings. RAD/Acute Abdomen Inc Chest IMPRESSION: No acute findings in the chest, abdomen or pelvis. Electronically Signed: Idris Johnson MD at 15:37 EDT ,
[2023-03-13 18:32] LABS: Erythrocyte Sedimentation Rate 42 mm/hr (0-30)
[2023-03-13 18:33] LABS: Absolute Lymphocyte Count 0.92 X10^3/uL (0.83-4.51); Absolute Neutrophil Count 5.9 X10^3/uL (2.0-7.7); Basophil# 0.04 X10^3/uL; Basophil% 0.5 % (0-1); Eosinophil# 0.05 X10^3/uL; Eosinophils% 0.6 % (0-5); Hematocrit 39.3 % (37-47); Hemoglobin 13.1 g/dL (12.0-15.0); Lymphocyte # 0.92 X10^3/ul (0.83-4.51); Lymphocyte % 11.5 % (19-41); Mean Corp Hgb Conc 33.3 g/dL (32-36); Mean Corpuscular Hgb 30.3 pg (27.0-32.0); Mean Corpuscular Volume 90.8 fL (81-99); Mean Platelet Vol. 9.9 fl (6.2-12.0); Monocyte# 1.09 X10^3/uL; Monocyte% 13.6 % (0-10); NRBC Flagged by Analyzer 0 % (0-5); Neutrophil % 73.4 % (47-70); Platelet Count 267 K/mm3 (150-450); RBC Distribution Width CV 13.5 % (11.6-14.6); RBC Distribution Width SD 45.6 fl (35.1-43.9); Red Blood Count 4.33 M/mm3 (4.2-5.4)
[2023-03-13 18:42] LABS: ALB/GLOB Ratio 0.8 RATIO (0.9-2.4); AST(SGOT) 42 U/L (15-37); Alanine Aminotransfer ALT/SGPT 80 U/L (13-56); Albumin, Serum 3.3 g/dL (3.2-5.0); Alkaline Phosphatase 122 U/L (45-117); Anion Gap 7 (5-15); BUN 13 mg/dL (7-18); BUN/Creat Ratio 16.5 RATIO (10-20); Calcium,Total 9.2 mg/dL (8.5-10.1); Chloride 105 mmol/L (98-107); Creatinine, Serum 0.79 mg/dL (0.55-1.02); EST Glomerular Filtration Rate 75 mL/min (>60); Est Glom Filt Rate - Afr Amer 91 mL/min (>60); Glucose 100 mg/dL (74-106); Potassium 3.5 mmol/L (3.5-5.1); Protein, Total 7.3 g/dL (6.4-8.2); Sodium Level 139 mmol/L (136-145)
[2023-03-18 03:07] LABS: Immunoglobulin E 198 IU/mL (6-495)
== END | disposition home or self-care (01) ==
LOC: MTLAB 14:52
PROVIDERS: Internal Medicine; PCP Internal Medicine; Referring Provider Internal Medicine; Visit Provider Internal Medicine
DX: R10.9 Unspecified abdominal pain (principal)
CPT/HCPCS: 36415; 74022; 80053; 82785; 85025; 85652; 86140

== ENCOUNTER → 2023-03-29 | Outpatient (CLI) | payer MEDICARE, OTHER, SELFPAY ==
--- NOTE | 2023-03-29 09:24 | US_ITS ---
STUDY: ABDOMINAL ULTRASOUND - RIGHT UPPER QUADRANT; ELASTOGRAPHY REASON FOR VISIT: Female, 77 years old. Elevated liver enzymes. Status post cholecystectomy. TECHNIQUE: Ultrasound evaluation of the right upper quadrant was performed with real-time and static schwartz-scale imaging. Point quantification shear wave elastography was performed ([employer]). TECHNICAL QUALITY: Adequate. COMPARISON: None. FINDINGS: Liver: The liver measures 15.3 cm. There is normal echogenicity of the liver. The bile ducts are within normal limits. There is hepatic color flow. The direction of portal flow is hepatopetal. There is no demonstrated mass lesion. Median liver stiffness measured 7 kPa. Gallbladder: The patient is status post cholecystectomy. Common Bile Duct (C.B.D.): The common bile duct measures 5.5 mm. Pancreas: There is normal echogenicity of the visualized pancreas. There is no demonstrated pancreatic mass or cyst. Right Kidney: Normal size of the right kidney. The right kidney measures 11.1 cm x 5.6 cm x 3.8 cm. Normal renal cortex. The right cortex measures 1.2 cm. There is a 1.3 cm x 1.1 cm x 0.9 cm septated cyst in the upper pole There is no right hydronephrosis. US/ABD Limited w/ Elastography IMPRESSION: 1. Liver stiffness measures 7 kPa compatible with F2-F3 (Mild to moderate liver fibrosis) Metavir score. Electronically Signed: Amado Soares MD at 9:33 EDT ,
== END | disposition home or self-care (01) ==
LOC: US 09:23
PROVIDERS: PCP Internal Medicine; Referring Provider Internal Medicine; Visit Provider Internal Medicine
DX: R74.8 Abnormal levels of other serum enzymes (principal)
CPT/HCPCS: 76705; 76981

== ENCOUNTER → 2023-04-04 | Outpatient (CLI) | payer MEDICARE, OTHER, SELFPAY ==
--- NOTE | 2023-04-05 07:26 | PFT ---
INTRODUCTION: The patient is a 77-year-old female who presents for pulmonary function studies secondary to a diagnosis of shortness of breath. Respiratory therapy reported good patient effort. Bronchodilators were used during testing. INTERPRETATION: Forced expiration spirometry demonstrates the presence of a mild large airways obstructive ventilatory defect. There was a significant response to aerosolized bronchodilators. Spirograms are of fair quality but do not plateau indicating slow emptying of the lungs. Body plethysmography was performed and revealed an elevated RV to 132% of predicted, indicative of underlying air trapping. Diffusing capacity by single breath CO was within normal limits. IMPRESSION: Partially reversible mild large airways obstructive ventilatory defect with associated air trapping.
== END | disposition home or self-care (01) ==
PROVIDERS: PCP Internal Medicine; Referring Provider Internal Medicine; Visit Provider Internal Medicine
DX: J44.9 Chronic obstructive pulmonary disease, unspecified (principal)
CPT/HCPCS: 94060; 94726; 94729

== ENCOUNTER → 2023-04-13 | Outpatient (CLI) | payer MEDICARE, OTHER, SELFPAY ==
[2023-04-13 14:25] LABS: Vitamin D,25 Hydroxy 89.3 ng/mL
[2023-04-13 14:32] LABS: AST(SGOT) 24 U/L (15-37); Alanine Aminotransfer ALT/SGPT 28 U/L (13-56); Albumin, Serum 3.5 g/dL (3.2-5.0); Alkaline Phosphatase 82 U/L (45-117); Anion Gap 7 (5-15); BUN 13 mg/dL (7-18); BUN/Creat Ratio 20.5 RATIO (10-20); Calcium,Total 9.2 mg/dL (8.5-10.1); Chloride 109 mmol/L (98-107); Creatinine, Serum 0.64 mg/dL (0.55-1.02); EST Glomerular Filtration Rate 97 mL/min (>60); Est Glom Filt Rate - Afr Amer 117 mL/min (>60); Globulin 3.5 g/dL (2.2-4.2); Glucose 88 mg/dL (74-106); Potassium 3.7 mmol/L (3.5-5.1); Sodium Level 141 mmol/L (136-145); Thyroid Stim Hormone (TSH) 2.09 uIU/mL (0.358-3.74)
== END | disposition home or self-care (01) ==
LOC: LAB 13:20
PROVIDERS: PCP Internal Medicine; Referring Provider Internal Medicine; Visit Provider Internal Medicine
DX: R94.5 Abnormal results of liver function studies (principal); M06.9 Rheumatoid arthritis, unspecified; R53.83 Other fatigue; E55.9 Vitamin D deficiency, unspecified
CPT/HCPCS: 36415; 80053; 82306; 84443

== ENCOUNTER → 2023-04-17 | Outpatient (CLI) | payer MEDICARE, OTHER, SELFPAY ==
[2023-04-18 13:08] LABS: ANTINUCLEAR ANTIBODIES DIRECT Negative (Negative)
[2023-04-18 15:09] LABS: Cytoplasmic Ab (C-ANCA) <1:20 titer (Neg:<1:20); Perinuclear Ab (P-ANCA) <1:20 titer (Neg:<1:20)
== END | disposition home or self-care (01) ==
LOC: LAB 12:15
PROVIDERS: PCP Internal Medicine; Referring Provider Internal Medicine; Visit Provider Internal Medicine
DX: J45.909 Unspecified asthma, uncomplicated (principal)
CPT/HCPCS: 36415; 86038; 86225; 86235; 86256; 86431

== ENCOUNTER → 2023-11-08 | Outpatient (CLI) | payer MEDICARE, OTHER, SELFPAY ==
--- NOTE | 2023-11-08 12:15 | RAD_ITS ---
HISTORY: Wheezing, rib pain. TECHNIQUE: XR Chest 2 Views. COMPARISON: 03/13/2023. FINDINGS: CARDIOMEDIASTINAL BORDERS: Cardiac silhouette within normal limits in size. Mediastinal contour unchanged with tortuosity calcification of the aorta. LUNGS/PLEURA: Mild linear right basilar opacity with increased elevation of the right hemidiaphragm. Similar position of the right upper quadrant surgical clips with subpulmonic effusion considered less likely. OSSEOUS STRUCTURES: Degenerative change and mild thoracolumbar scoliosis. RAD/Chest PA and Lateral IMPRESSION: Increased elevation of the right hemidiaphragm with linear right basilar opacity, likely atelectasis. Electronically Signed: Kathya Mcintosh MD at 13:30 EST ,
== END | disposition home or self-care (01) ==
PROVIDERS: PCP Internal Medicine; Referring Provider Internal Medicine; Visit Provider Internal Medicine
DX: J45.909 Unspecified asthma, uncomplicated (principal); R07.81 Pleurodynia
CPT/HCPCS: 71046

== ENCOUNTER 2024-03-06 11:08 | Emergency (ER) | payer MEDICARE, OTHER, SELFPAY ==
[2024-03-06] VITALS (8 sets, daily range): BP systolic 116–165; BP diastolic 80–123; PULSE 73–93; RESP 16–22; TEMP 36.3–36.8; O2SAT 77–100; BMI 32.1
--- NOTE | 2024-03-06 11:42 | ED.RN ---
pt.'s calls out 2x about pt. having pain. this rn walked back offered ice to place on pt's arm. states ice aint gonna do shit, explained to the dr. chaparro has signed up for her and will be in. pt. states this is bullshit, she is 79yrs old explained to the pt. that there is 2 doc, for 20 pt's currently, they are working on getting pts seen, they have to go by acuity. dr. chaparro walks in the door at this time
--- NOTE | 2024-03-06 11:47 | ED.VIS.FALL ---
HPI HPI - Fall History of Present Illness Chief Complaint: Fall Informant: patient Occured/Mechanism Occurred: Today Mechanism/Context: Yes same level fall Pain/Injury Location: Left wrist, left elbow Quality of Pain: Burning Worsened by: Movement Relieved by: Nothing Associated Symptoms Associated Symptoms: Negative for Parasthesias, Weakness, Loss of function, Inability to ambulate, Loss of consciousness or Amnesia Narrative Narrative: Patient presents after a fall that occurred today. Patient was having a test performed today. Patient was walking on a treadmill when she started to feel weak and wanted to stop. Patient fell prior to stopping. Patient complains of pain in her left wrist, left elbow, and neck. Patient denies any loss of consciousness. Patient does not think she hit her head but is not completely sure. Patient describes her pain as burning. Patient states it is worse with any movement. Patient denies any paresthesias or weakness. [facility] Medical History (Updated 03/06/24 @ 15:[address] Regan Krueger, DO) Arthritis Asthma Bone fracture Cataracts, bilateral Hearing problem History of stomach ulcers Hives Low calcium levels Osteoarthritis Seasonal allergies Vision problems Vitamin deficiency Home Medications hydroxychloroquine 200 mg tablet 200 mg PO DAILYCM 07/18/19 [History Last Taken 07/18/19] potassium PO DAILY 12/14/22 [History Last Taken Unknown] psyllium husk 3.4 gram/5.4 gram oral powder (Metamucil) 1 tbsp PO DAILY 12/14/22 [History Last Taken Unknown] azithromycin 250 mg tablet See Rx Instructions PO .COMPLEX #6 tabs 11/08/23 [Rx Last Taken Unknown] glucosamine sulfate 2KCl 1,000 mg tablet (Glucosamine Relief) 1,000 mg PO BID 11/08/23 [History Last Taken Unknown] methylprednisolone 4 mg tablets in a dose pack (Medrol (Jerad)) See Rx Instructions PO PER PKG DIR #21 tabs 11/08/23 [Rx Last Taken Unknown] albuterol sulfate 2.5 mg/3 mL (0.083 %) solution for nebulization 2.5 mg (3 mL) inhalation Q6H PRN shortness of breath or wheezing #180 mL 12/18/23 [Rx Last Taken Unknown] albuterol sulfate 90 mcg/actuation aerosol inhaler 2 puff inhalation Q6H PRN shortness of breath or wheezing #8.5 grams 12/18/23 [Rx Last Taken Unknown] ascorbic acid (vitamin C) 500 mg capsule 500 mg PO .qd #90 caps 12/18/23 [Rx Last Taken Unknown] carboxymethylcellulose sodium 0.5 % eye drops (Refresh Tears) 2 drp ophthalmic (eye) BID PRN dry eye(s) #30 mL 12/18/23 [Rx Last Taken Unknown] cetirizine 10 mg tablet 10 mg PO DAILY allergies #90 tabs 12/18/23 [Rx Last Taken Unknown] cholecalciferol (vitamin D3) 125 mcg (5,000 unit) capsule 125 mcg PO DAILY #90 caps 12/18/23 [Rx Last Taken Unknown] fluticasone propionate 230 mcg-salmeterol 21 mcg/actuation HFA inhaler (Advair HFA) 2 puff inhalation BID #12 grams 12/18/23 [Rx Last Taken Unknown] meloxicam 15 mg tablet 15 mg PO DAILY #90 tabs 12/18/23 [Rx Last Taken Unknown] montelukast 10 mg tablet 10 mg PO DAILY PRN allergy symptoms #90 tabs 12/18/23 [Rx Last Taken Unknown] zinc acetate 50 mg (zinc) capsule (Galzin) 50 mg PO DAILY #90 caps 12/18/23 [Rx Last Taken Unknown] nystatin 100,000 unit/mL oral suspension 1 ml PO TID 7 days #30 mL 01/05/24 [Rx Last Taken Unknown] hydrocodone-acetaminophen 5-325mg 5mg-325mg 1 tab PO Q6H PRN PRN Pain 3 days #10 TABLETS 03/06/24 [Rx Last Taken Unknown] Allergy/AdvReac Type Severity Reaction Status Date / Time aspirin Allergy Shortness Verified 03/06/24 11:17 of breath metronidazole [From Flagyl] Allergy Abd Verified 03/06/24 11:17 cramps/diarrhea risedronate sodium Allergy NEEDS Verified 03/06/24 11:17 FOLLOW-UP Seasonal Allergies: Uncoded Allergy NEEDS Verified 03/06/24 11:17 FOLLOW-UP Sulfa (Sulfonamide Allergy Other Verified 03/06/24 11:17 Antibiotics) Family History Mother Alzheimers disease Mental disorder Osteoporosis Brother COPD (chronic obstructive pulmonary disease) Respiratory disease Severe allergy Father Heart disease Osteoporosis H/O heart bypass surgery, Onset Age: 83 double carotoid a quad bypasss lived to be 89 Other Arthritis Surgical History (Updated 03/06/24 @ 13:[address] Regan Krueger DO) History of hysterectomy History of tonsillectomy Hx of cholecystectomy Social History Smoking Status: Never smoker ROS ROS ED Constitutional Constitutional ED: Denies chills or fever(s) Eyes Eyes: Denies blurry vision or change in vision ENT ENT ED: Denies rhinorrhea or sore throat Cardiovascular Cardiovascular: Reports chest pain; Denies palpitations Respiratory/Chest Respiratory/Chest: Reports dyspnea; Denies cough Gastrointestinal Gastrointestinal: Denies nausea or vomiting Genitourinary Genitourinary ED: Reports urinary frequency; Denies dysuria or hematuria Musculoskeletal Musculoskeletal: Reports neck pain; Denies back pain Integumentary Denies abscess or rash Neurologic Neurologic: Denies headache(s) or weakness Allergic/Immunologic Allergic/Immunologic ED: Denies mouth swelling or urticaria EXAM Physical Exam Const Vital Signs: 03/06/24 11:09 03/06/24 11:32 03/06/24 12:51 Temperature 97.4 F L 98.2 F Temperature Source Temporal Pulse Rate 73 92 Pulse Rate [1 (Initial Baseline)] Pulse Rate [2] Pulse Rate [3] Pulse Rate [4] Respiratory Rate 16 16 Respiratory Rate [1 (Initial Baseline)] Respiratory Rate [2] Respiratory Rate [3] Respiratory Rate [4] Respiratory Effort Normal Respiratory Depth Normal Respiratory Pattern Normal Blood Pressure 153/123 H 165/113 H Blood Pressure [1 (Initial Baseline)] Blood Pressure [2] Blood Pressure [3] Blood Pressure [4] Blood Pressure Mean 133 Pulse Ox 95 92 Oxygen Delivery Method Room Air Room Air Room Air Oxygen Delivery Method [1 (Initial Baseline)] Oxygen Delivery Method [2] Oxygen Delivery Method [3] Oxygen Delivery Method [4] Oxygen Flow Rate (L/min) 0 Oxygen Flow Rate (L/min) [1 (Initial Baseline)] Oxygen Flow Rate (L/min) [2] Oxygen Flow Rate (L/min) [3] Oxygen Flow Rate (L/min) [4] 03/06/24 13:09 03/06/24 14:08 03/06/24 14:21 Temperature Temperature Source Pulse Rate 80 Pulse Rate [1 (Initial Baseline)] 93 Pulse Rate [2] 92 Pulse Rate [3] 91 Pulse Rate [4] 88 Respiratory Rate 20 H Respiratory Rate [1 (Initial Baseline)] 19 H Respiratory Rate [2] 22 H Respiratory Rate [3] 18 Respiratory Rate [4] 17 Respiratory Effort Respiratory Depth Respiratory Pattern Blood Pressure 133/81 H Blood Pressure [1 (Initial Baseline)] 143/111 H Blood Pressure [2] 143/82 H Blood Pressure [3] 144/90 H Blood Pressure [4] 135/98 H Blood Pressure Mean 98 Pulse Ox 100 Oxygen Delivery Method Nasal Cannula Nasal Cannula Oxygen Delivery Method [1 (Initial Baseline)] Nasal Cannula Oxygen Delivery Method [2] Non-Rebreather Oxygen Delivery Method [3] Non-Rebreather Oxygen Delivery Method [4] Non-Rebreather Oxygen Flow Rate (L/min) 3 4 Oxygen Flow Rate (L/min) [1 (Initial Baseline)] 3 Oxygen Flow Rate (L/min) [2] 10 Oxygen Flow Rate (L/min) [3] 10 Oxygen Flow Rate (L/min) [4] 10 03/06/24 14:24 03/06/24 14:27 Temperature Temperature Source Pulse Rate Pulse Rate [1 (Initial Baseline)] Pulse Rate [2] Pulse Rate [3] Pulse Rate [4] Respiratory Rate Respiratory Rate [1 (Initial Baseline)] Respiratory Rate [2] Respiratory Rate [3] Respiratory Rate [4] Respiratory Effort Respiratory Depth Respiratory Pattern Blood Pressure Blood Pressure [1 (Initial Baseline)] Blood Pressure [2] Blood Pressure [3] Blood Pressure [4] Blood Pressure Mean Pulse Ox Oxygen Delivery Method Nasal Cannula Room Air Oxygen Delivery Method [1 (Initial Baseline)] Oxygen Delivery Method [2] Oxygen Delivery Method [3] Oxygen Delivery Method [4] Oxygen Flow Rate (L/min) 2 2 Oxygen Flow Rate (L/min) [1 (Initial Baseline)] Oxygen Flow Rate (L/min) [2] Oxygen Flow Rate (L/min) [3] Oxygen Flow Rate (L/min) [4] Positive well nourished and well developed General Appearance ED: well developed and NAD HEENT Reports normocephalic atraumatic Neck supple Resp normal respiratory effort and clear to auscultation bilaterally Cardio regular rate and regular rhythm GI non-tender and non-distended Palpation: soft Extremity Extremity Narrative: There is tenderness and deformity of the left wrist. There is also tenderness over the left elbow. There is edema and ecchymosis noted. Range of motion was limited in all motions of the left upper extremity secondary to pain. Radial pulses are equal bilaterally. Sensation was intact to light touch in the radial, median, and ulnar areas. Strength is 5/5 in the radial, median, and ulnar areas. Neuro oriented x3, CN's II-XII intact bilaterally, moves all extremities, no focal motor deficits and no sensory deficits noted Marlin Coma Scale: document GCS findings Spontaneous Obeys Commands Oriented 15 Sensorium / Orientation: alert Motor Exam: strength 5/5 throughout Psych mental status grossly normal and thought process normal MDM MDM MDM Narrative Medical decision making narrative: Differential diagnosis includes closed head injury, intracranial bleeding, cervical spine fracture, cervical strain, left elbow contusion, left elbow sprain, left elbow fracture, left elbow dislocation, distal radius fracture, wrist dislocation, and wrist sprain. X-rays of the left wrist will be obtained to assess for fracture, dislocation, and sprain. X-rays of the left elbow will be obtained to assess for fracture, dislocation, and sprain. CT scan of the cervical spine will be obtained to assess for fracture and subluxation. CT scan of the brain will be obtained to assess for intracranial bleeding. Radiography Diagnostic Testing: Clinical Impression(s) from Imaging Studies Elbow X-Ray 03/06/24 11:48 IMPRESSION: Posterior dislocation of the elbow joint with evidence of a joint effusion and soft tissue swelling. Electronically Signed: Amado Soares MD at 12:28 EDT , Wrist X-Ray 03/06/24 11:48 IMPRESSION: Nondisplaced comminuted fractures of the distal radial metaphysis with extension to the articular surface and volar angulation. Avulsion fracture of the ulnar styloid. Questionable fracture through the waist of the carpal navicular bone. Electronically Signed: Amado Soares MD at 12:26 EDT , Brain CT 03/06/24 12:20 IMPRESSION: Chronic involutional changes of the brain. Mild degree of mucosal thickening of the left sphenoid sinus. Electronically Signed: Amado Soares MD at 13:52 EDT , Cervical Spine CT 03/06/24 12:20 IMPRESSION: Multilevel degenerative changes, as described above. Electronically Signed: Amado Soares MD at 13:50 EDT , Elbow X-Ray 03/06/24 14:40 IMPRESSION: Satisfactory reduction of the left elbow joint. Electronically Signed: Amado Soares MD at 14:55 EDT , X-rays of the left wrist were obtained. There are 2 views. On my independent interpretation, there is a comminuted fracture of the distal radius. There is volar angulation of the distal fragment. There is also an ulnar styloid fracture. Radiologist also interpreted the x-rays and agrees. X-rays of the left elbow were obtained. There are 2 views. On my independent interpretation, there is a posterior dislocation of the elbow. There is no acute fracture noted. Radiologist also interpreted the x-rays and agrees. CT scan of the brain was obtained. There is no acute intracranial abnormality. There are chronic involutional changes noted. This was interpreted by the radiologist and was also independently reviewed by myself. CT scan of the cervical spine was obtained. There are degenerative changes. There is no acute fracture or subluxation. This was interpreted by the radiologist and was also independently reviewed by myself. X-rays of the left elbow were repeated after reduction. There are 3 views. On my independent interpretation, there is good reduction of the previous dislocation. There are no acute fractures noted. Radiologist also interpreted the x-ray and agrees. Repeat x-rays of the left wrist were obtained after reduction. There are 2 views. On my independent interpretation, there is improved alignment of the fracture fragments. There is still a fracture fragment on the volar aspect of the distal radius that is displaced volarly. Radiologist also interpreted the x-rays and agrees. Treatment and Re-Evaluation Narrative: Patient was given a dose of morphine and Zofran prior to x-rays. Patient and spouse were advised for the need for procedural sedation in order to reduce the fracture and dislocation. Patient and spouse are agreeable with this. Patient was given a repeat dose of morphine. The procedural sedation was explained to the patient and spouse. Patient and spouse were given the opportunity ask questions. They no further questions. Patient was placed on continuous cardiac and pulse oximeter monitors. Patient was given a dose of 80 mg of propofol. After the patient was sedated, the elbow was reduced. Then the distal radius fracture was also reduced. Patient was placed in a well-padded custom made sugar-tong splint using 3 inch Ortho-Glass. Patient tolerated the procedure well. Patient did have an episode of hypoxia that was resolved after placing the patient on a nonrebreather mask. Total sedation time was 14 minutes. Patient was instructed to ice and elevate her left upper extremity. Patient was instructed to follow-up with [facility] who she has seen in the past. Patient and understood and were agreeable with the plan. Patient was given a prescription for [place]. All questions were answered. Procedures Procedural Sedation 1 (Initial Baseline): Consent Signed: Yes Any Problems With Anesthesia: No You/Your family experience fever (hyperthermia) w/anesthesia: No Sedation medication: Propofol Dose: 80 Route: IV Maliampati Score: Class II ASA Classification: II Discharge Plan Triage Chief Complaint: Fall ED Provider: Regan Krueger Dx/Rx/DC Orders Clinical Impression: Closed fracture of left distal radius, Rheumatoid arthritis, Dislocation of left elbow, Acute cervical myofascial strain, Fall Instructions: ED Elbow Dislocation, ED Fracture, Upper Extremity Prescriptions: New hydrocodone-acetaminophen [hydrocodone-acetaminophen] 5-325 mg tablet 1 tab PO Q6H PRN PRN (Reason: Pain) 3 Days Qty: 10 0RF No Action potassium 99 mg PO DAILY Metamucil 3.4 gram/5.4 gram powder 1 tbsp PO DAILY Rx Instructions: mix into at least 8 oz of water or juice before administering glucosamine sulfate 2KCl [Glucosamine Relief] 1,000 mg tablet 1,000 mg PO BID Rx Instructions: administer with meals hydroxychloroquine 200 MG tablet 200 mg PO DAILYCM azithromycin 250 mg tablet See Rx Instructions PO .COMPLEX Qty: 6 0RF Rx Instructions: For 250 mg dose pack: take 500 mg today (day 1), then 250 mg for 4 days (days 2-5) PO methylprednisolone [Medrol (Jerad)] 4 mg tablets,dose pack See Rx Instructions PO PER PKG DIR Qty: 21 0RF Rx Instructions: PO PER PKG DIR albuterol sulfate 2.5 mg /3 mL (0.083 %) solution for nebulization 2.5 mg inhalation Q6H PRN (Reason: shortness of breath or wheezing) Qty: 180 6RF albuterol sulfate 90 mcg/actuation HFA aerosol inhaler 2 puff inhalation Q6H PRN (Reason: shortness of breath or wheezing) Qty: 8.5 6RF ascorbic acid (vitamin C) 500 mg capsule 500 mg PO .qd Qty: 90 3RF carboxymethylcellulose sodium [Refresh Tears] 0.5 % drops 2 drp ophthalmic (eye) BID PRN (Reason: dry eye(s)) Qty: 30 1RF cetirizine 10 mg tablet 10 mg PO DAILY Qty: 90 3RF cholecalciferol (vitamin D3) 125 mcg (5,000 unit) capsule 125 mcg PO DAILY Qty: 90 3RF fluticasone propion-salmeterol [Advair HFA] 230-21 mcg/actuation HFA aerosol inhaler 2 puff inhalation BID Qty: 12 11RF meloxicam 15 mg tablet 15 mg PO DAILY Qty: 90 3RF montelukast 10 mg tablet 10 mg PO DAILY PRN (Reason: allergy symptoms) Qty: 90 3RF Galzin 50 mg (zinc) capsule 50 mg PO DAILY Qty: 90 3RF nystatin 100,000 unit/mL suspension 1 ml PO TID 7 Days Qty: 30 1RF Rx Instructions: administer 1/2 of dose in each side of the mouth, swish and swallow. Primary Care Provider: Khloe Vazquez Referrals: Constantine Chase MD [Non-Staff] - 3-5 Days Khloe Vazquez MD [Primary Care Provider] - Disposition Disposition: Home, Self Care
--- NOTE | 2024-03-06 11:48 | RAD_ITS ---
STUDY: X-RAY - LEFT WRIST REASON FOR EXAM: Female, 78 years old. Injury/Pain TECHNIQUE: 2 view(s) of the wrist were obtained. COMPARISON: None. FINDINGS: Comminuted fracture of the distal radial metaphysis with extension to the articular surface. There is evidence of volar angulation. Avulsion fracture of the ulnar styloid. Normal radiocarpal articulation. Normal distal radioulnar articulation. Questionable fracture through the waist of the carpal navicular bone. Normal carpal articulations. There is degenerative arthrosis of the carpometacarpal articulation of the thumb. Normal second through fifth carpometacarpal articulations. Normal visualized metacarpal bones. Soft tissue swelling. RAD/Wrist 2 Views IMPRESSION: Nondisplaced comminuted fractures of the distal radial metaphysis with extension to the articular surface and volar angulation. Avulsion fracture of the ulnar styloid. Questionable fracture through the waist of the carpal navicular bone. Electronically Signed: Amado Soares MD at 12:26 EDT ,
--- NOTE | 2024-03-06 11:48 | RAD_ITS ---
STUDY: X-RAY - LEFT ELBOW REASON FOR EXAM: Female, 78 years old. Injury/Pain TECHNIQUE: 2 view(s) of the elbow. COMPARISON: None. FINDINGS: Normal visualized humerus, radius and ulna. Posterior dislocation of the elbow joint. Joint effusion. Soft tissue swelling. RAD/Elbow 2 Views IMPRESSION: Posterior dislocation of the elbow joint with evidence of a joint effusion and soft tissue swelling. Electronically Signed: Amado Soares MD at 12:28 EDT ,
[2024-03-06] MEDS: Ondansetron 4 MG/2 ML Vial IV (11:52)
[2024-03-06] MEDS: Morphine 4 MG/ML Syringe IV ×2 (11:52→12:59)
--- NOTE | 2024-03-06 12:20 | CT_ITS ---
STUDY: CT BRAIN WITHOUT CONTRAST REASON FOR EXAM: Female, 78 years old. Injury/Pain RADIATION DOSAGE (If Supplied By Facility): CTDIvol = ( 44.99 ) mGy, DLP = ( 812.98 ) mGycm TECHNIQUE: Transaxial CT imaging of the brain was performed without administration of intravenous contrast material. Individualized dose optimization techniques were used for this CT. COMPARISON: Comparison is made with prior study dated July 18, 2019. FINDINGS: Normal soft tissue structures. Normal calvarium. There is mild cerebral atrophy with widening of the extra-axial spaces and ventricular dilatation. Normal white matter tracts of the cerebral hemispheres. Normal basal ganglia and thalami. Normal brainstem. Normal cerebellum. There is no intracranial hemorrhage. There are no findings of an acute ischemic infarction. Atherosclerotic plaque formation of the cavernous portions of the internal carotid arteries bilaterally. Mild mucosal thickening of the left sphenoid sinus. CT/Brain/Head without Contrast IMPRESSION: Chronic involutional changes of the brain. Mild degree of mucosal thickening of the left sphenoid sinus. Electronically Signed: Amado Soares MD at 13:52 EDT ,
--- NOTE | 2024-03-06 12:20 | CT_ITS ---
STUDY: CT CERVICAL SPINE WITHOUT CONTRAST REASON FOR EXAM: Female, 78 years old. Injury/Pain RADIATION DOSAGE (If Supplied By Facility): CTDIvol = ( 27.51 ) mGy, DLP = ( 554.71 ) mGycm TECHNIQUE: High resolution transaxial imaging was performed without contrast material. Sagittal and coronal images were reconstructed. Individualized dose optimization techniques were used for this CT. COMPARISON: None FINDINGS: Normal craniovertebral junction. There are degenerative changes of the anterior atlantoaxial articulation. Normal odontoid process. Normal cervical lordosis. Multilevel spondylosis. C2-3: Facet joint osteoarthritis more prominent on the right side. No significant stenosis seen. C3-4: Mild degree of disc space narrowing. Facet joint osteoarthritis and hypertrophy worse on the left side. Uncovertebral arthrosis. Mild degree of left neural foraminal stenosis. C4-5: Marked degree of disc space narrowing. Spondylosis. Uncovertebral arthrosis. Facet joint osteoarthritis. Bilateral neural foraminal stenosis. C5-6: Marked degree of disc space narrowing. Spondylosis. Uncovertebral arthrosis. Bilateral neural foraminal stenosis. C6-7: Marked degree of disc space narrowing and spondylosis. Mild degree of bilateral neural foraminal stenosis. C7-T1: Normal endplates. Normal disc height and morphology. Normal central canal and intervertebral neuroforamina. Calcification of the carotid bifurcations. CT/Spine Cervical without Contras IMPRESSION: Multilevel degenerative changes, as described above. Electronically Signed: Amado Soares MD at 13:50 EDT ,
[2024-03-06] MEDS: Propofol 200 MG/20 ML Vial IV BOLUS (14:29)
--- NOTE | 2024-03-06 14:40 | RAD_ITS ---
STUDY: X-RAY - LEFT ELBOW REASON FOR EXAM: Female, 78 years old. Post reduction images. TECHNIQUE: 3 view(s) of the elbow. COMPARISON: Comparison is made with prior study done earlier today. FINDINGS: Normal visualized humerus, radius and ulna. Satisfactory reduction of the elbow joint. Persistent joint effusion and soft tissue swelling. RAD/Elbow 2 Views IMPRESSION: Satisfactory reduction of the left elbow joint. Electronically Signed: Amado Soares MD at 14:55 EDT ,
--- NOTE | 2024-03-06 14:40 | RAD_ITS ---
STUDY: X-RAY - LEFT WRIST REASON FOR EXAM: Female, 78 years old. Fracture TECHNIQUE: 2 view(s) of the wrist were obtained. COMPARISON: Comparison is made with prior study done earlier today. FINDINGS: Satisfactory reduction of the comminuted distal radial fracture. Normal radiocarpal articulation. Normal distal radioulnar articulation. No definite fracture of the carpal navicular bone is seen. Normal carpal articulations. Normal carpometacarpal articulation of the thumb. Normal second through fifth carpometacarpal articulations. Normal visualized metacarpal bones. The soft tissue structures are unremarkable. RAD/Wrist 2 Views IMPRESSION: Satisfactory reduction of the distal radial fracture. Electronically Signed: Amado Soares MD at 15:19 EDT ,
== END 2024-03-06 16:16 | disposition home or self-care (01) ==
PROVIDERS: Emergency Provider Emergency Medicine; PCP Internal Medicine; Visit Provider Emergency Medicine
DX: S52.502A Unspecified fracture of the lower end of left radius, initial encounter for closed fracture (principal); M06.9 Rheumatoid arthritis, unspecified; S53.105A Unspecified dislocation of left ulnohumeral joint, initial encounter; S16.1XXA Strain of muscle, fascia and tendon at neck level, initial encounter; J45.909 Unspecified asthma, uncomplicated; W18.30XA Fall on same level, unspecified, initial encounter
CPT/HCPCS: 70450; 72125; 73070; 73100; 96374; 96375; 99152; 99285; J7030; J2405

== ENCOUNTER → 2024-04-23 | Outpatient (CLI) | payer MEDICARE, OTHER, SELFPAY ==
--- NOTE | 2024-04-23 07:57 | PR.OPHP_ITS ---
Documented by User: Alpesh Miranda, AUTOMOBILE DETAILER, PRINCIPAL AUTOMATION ENGINEER, BS 04/23/24 08:44 History of Present Illness General Arrival date:: 04/23/24 Arrival time:: 07:58 Date of Referral:: 04/10/24 Date of Evaluation: 04/23/24 Referring Physician: Dr. Luh Ochoa Primary Diagnosis: Hemiparalysis of diaphragm, asthma History of Present Pulmonary Event History of Present Illness: patient is a [address] Vazquez and Dr. Luh Ochoa who presents to pulmonary rehab today for her hemidiaphragm paralysis. The patient states she has a previous history of jill respiratory infections easily and following a recent infection still had continuing shortness of breath at rest and activity. Dr. Vazquez referred her to Dr. Luh Ochoa for further evaluation adn discovered the diaphragm paralysis. She started a 6-MWT at the [facility] and experienced sharp stabbing pain on the right side and then fell and fractured her arm without finishing the test. SHe is prescribed home oxygen at 2 liters, but only wears 1 liter due to nose bleeds from nasal dryness. WE will monitor her oxygen saturations to determine a baseline and communicate desaturations to her physicians if daily continuous oxygen is nindicated. mMRC Breathless Scale: When is the patient short of breath? Y/N Grade: Description of Breathlessness: N 0 I only get breathless with strenuous exercise. Y 1 I get short of breath when hurrying on level ground or walking up a slight hill. Y 2 On level ground, I walk slower than people of the same age because of breathless, or have to stop for breath when walking at my own pace. Y 3 I stop for breath after walking 100 yards or after a few minutes on level ground. 4 I am too breathless to leave the house or I am breathless when dressing. Respiratory Problems: Yes Able to Speak in Full Sentences, Dizziness, Hoarseness, Dyspnea at Rest, Dyspnea with Activity and Dyspnea Lying Down Flat; No Retain Secretions, Fatigue, Wheezing, Ankle Swelling or Anxiety Medications Home Medications hydroxychloroquine 200 mg tablet 200 mg PO DAILYCM 07/18/19 potassium PO DAILY 12/14/22 psyllium husk 3.4 gram/5.4 gram oral powder (Metamucil) 1 tbsp PO DAILY 12/14/22 azithromycin 250 mg tablet See Rx Instructions PO .COMPLEX #6 tabs 11/08/23 glucosamine sulfate 2KCl 1,000 mg tablet (Glucosamine Relief) 1,000 mg PO BID 11/08/23 methylprednisolone 4 mg tablets in a dose pack (Medrol (Jerad)) See Rx Instructions PO PER PKG DIR #21 tabs 11/08/23 albuterol sulfate 2.5 mg/3 mL (0.083 %) solution for nebulization 2.5 mg (3 mL) inhalation Q6H PRN shortness of breath or wheezing #180 mL 12/18/23 albuterol sulfate 90 mcg/actuation aerosol inhaler 2 puff inhalation Q6H PRN shortness of breath or wheezing #8.5 grams 12/18/23 ascorbic acid (vitamin C) 500 mg capsule 500 mg PO .qd #90 caps 12/18/23 carboxymethylcellulose sodium 0.5 % eye drops (Refresh Tears) 2 drp ophthalmic (eye) BID PRN dry eye(s) #30 mL 12/18/23 cetirizine 10 mg tablet 10 mg PO DAILY allergies #90 tabs 12/18/23 cholecalciferol (vitamin D3) 125 mcg (5,000 unit) capsule 125 mcg PO DAILY #90 caps 12/18/23 fluticasone propionate 230 mcg-salmeterol 21 mcg/actuation HFA inhaler (Advair HFA) 2 puff inhalation BID #12 grams 12/18/23 meloxicam 15 mg tablet 15 mg PO DAILY #90 tabs 12/18/23 montelukast 10 mg tablet 10 mg PO DAILY PRN allergy symptoms #90 tabs 12/18/23 zinc acetate 50 mg (zinc) capsule (Galzin) 50 mg PO DAILY #90 caps 12/18/23 nystatin 100,000 unit/mL oral suspension 1 ml PO TID 7 days #30 mL 01/05/24 hydrocodone-acetaminophen 5-325mg 5mg-325mg 1 tab PO Q6H PRN PRN Pain 3 days #10 TABLETS 03/06/24 Allergies Allergies aspirin Allergy (Verified 03/06/24 11:17) Shortness of breath metronidazole (From Flagyl) Allergy (Verified 03/06/24 11:17) Abd cramps/diarrhea risedronate sodium Allergy (Verified 03/06/24 11:17) NEEDS FOLLOW-UP Seasonal Allergies: Uncoded Allergy (Verified 03/06/24 11:17) NEEDS FOLLOW-UP Sulfa (Sulfonamide Antibiotics) Allergy (Verified 03/06/24 11:17) Other Secretions Thick:: No Thin:: No Cough:: Yes Sleep Disorder Evaluation Hx of Sleep Apnea: No Do you snore loudly (louder than talking or can be heard through closed doors)?: Yes Do you often feel tired/ fatigued/ sleepy during daytime?: Yes Has anyone observed you stop breathing during sleep?: No History of Hypertension (for STOP score): Yes STOP Results: Positive Medical Utilization Medical Devices Do you use a peak flow meter at home?: No Do you use a spacer device with your inhalers?: No Medical Utilization Number of hospital visits in the last year?: 0 Number of emergency room visits in the last year?: 1 (March 06 when she fell fracturing her arm.) Do you see your physician on a regular schedule?: Yes How often?: Dr. Vazquez 6 months, others 6 months Advanced Directives Advanced Directives Power of Sailboat Captain: Yes Living Will: Yes Advance Directives Information Provided: No Advance Directives on File: Yes DNR Order?:: Yes Past Medical History Covid-19 Screening Physicial Symptoms Fever: No Unexplained muscle aches: No Current respiratory symptoms: No Upper respiratory infections symptoms: No Gastro-intestinal symptoms: No [id number] symptoms: No Other Clinical Concerns Has tested positive for COVID-19 in last 30 days: No Exposure Risk Had contact w/person w/symptoms or Covid-19 (+) last 14 days: No Has High Risk Exposures ID'd by Health dept/Inf Control team: No Pertinent Comorbidities 65 years or older:: Yes Lives in Assisted Living facility:: No Has a chronic lung disease or moderate to severe asthma:: No Has a serious heart condition:: No Immunocompromised:: No Severely obese (Body Mass Index of 40 or higher):: No Diabetic:: No Has chronic kidney disease undergoing dialysis:: No Has liver disease:: No Medical History Past Medical History (Updated 03/14/24 @ 00:03 by Background Daemon) History of stomach ulcers Z87.11 Vitamin deficiency E56.9 Vision problems H54.7 Osteoarthritis M19.90 Hives L50.9 Low calcium levels E83.51 Hearing problem H91.90 Cataracts, bilateral H26.9 Bone fracture T14.8XXA Arthritis M19.90 Seasonal allergies J30.2 Asthma J45.909 Surgical History Past Surgical History (Updated 03/06/24 @ 13:[address] Regan Krueger, DO) Hx of cholecystectomy Z90.49 History of tonsillectomy Z90.89 History of hysterectomy Z90.710 Significant Family History Family History Mother Alzheimers disease Mental disorder Osteoporosis Brother COPD (chronic obstructive pulmonary disease) Respiratory disease Severe allergy Father Heart disease Osteoporosis H/O heart bypass surgery, Onset Age: 81 double carotoid a quad bypasss lived to be 94 Other Arthritis Current/ Previous Services Pulmonary Rehab:: No Social History Smoking History Smoking Status: Never smoker Alcohol Use Alcohol Usage: Yes (once or twice per month socially wine/beer) Substance Abuse Hx Substance Use: No Occupation Occupation (List type of work in comments):: Retired (2 years retired) Hobbies, Recreation, Social Activities Hobbies: Sports (Tennis, gaolfing) and Other (rajwinder, gardening) Recreational Activities: I can hardly do any recreational activities Functioning ADL/IADL Current Ability Current Ability: Independent: Self-Care (e.g.,grooming, dressing, & bathing), Independent: Ambulation, Independent: Transfer and Independent: Household tasks (e.g., light meal prep, laundry, shopping) Pt Functioning Prior to Problem Prior Functioning: Self-Care (e.g.,grooming, dressing, & bathing): Independent, Ambulation: Independent, Transfer: Independent and Household tasks (e.g., light meal prep, laundry, shopping): Independent Social Environment Status Marital Status: Current Living Arrangements Living Environment:: Spouse Children How many children do you have?: 2 Do any of your children live nearby?: Yes Safety Do you feel safe in your surroundings?: Yes Assistance Do you need any assistance at home?: no Review of Systems Review of Systems Review of Systems Respiratory: Reports Cough, SOB at Rest, SOB upon Exertion, Dizziness/Lightheadedness (when gets sharp pain on the right side) and Fatigue; Denies Sputum production or Wheezing Pain Is Patient Pain Free?: Yes Pain Location: none and upper extremity (fracture left fore-arm in cast) Pain Level: 4/10 Risk Factor Assessment Chief Complaint Chief Complaint: 78 yr old female of Dr. Vazquez and Dr. Brenda Ochoa who presents to pulmonary rehab today for her hemidiaphragm paralysis Vital Signs Temperature: 98.6 F Pulse Rate: 77 Pulse Rhythm: Regular Respiratory Rate: 16 Pulse Ox: 93 Blood Pressure: 109/63 Diabetes Nutrition Referral for Diabetes: No Obesity Height: 5 ft 1.5 in Weight:: 159 lb Weight in Pounds: 159.0 lbs [facility] Body Mass Index (BMI): 29.5 Nutritional Referral for Obesity: Yes Physical Activity Physical Inactivity: Recreational activity (Physically active at home. Gardening, golf and tennis.) Risk Stratification Risk Guidelines: Lowest Risk: Risk Factor for Smoking, Risk Factor for Dyslipidemia, Risk Factor for Diabetes, Risk Factor for Hypertension, Risk Factor for Sedentary Lifestyle and Risk Factor for Depression and Moderate Risk: Risk Factor for Obesity (BMI 29.5) For Smoking Smoking Risk Guidelines For Dyslipidemia Dyslipidemia Risk Guidelines For Diabetes Mellitus Diabetes Risk Guidelines For Obesity/Overweight Obesity/Overweight Risk Guidelines For Hypertension Hypertension Risk Guidelines For Sedentary Lifestyle Sedentary Lifestyle Risk Guidelines For Depression Depression Risk Guidelines Motivation Motivation to Participate On a scale of 1 to 10, how prepared are you to commit to attending program?: 10 What do you see as barriers to successfully being able to complete the program?: Fracture arm What do you see as the benefits of succesfully completing the program? In other words, what do you hope to get out of participating in the program?: being able to reactivate diaphragm, healthier lung capacity doing exercise Are there issues you are dealing with that will interfere with completing the program?: recent fracture left arm during 6-MWT at [facility] Do you have a spouse or signficant other, family or friends who will help support you to complete the program?: Yes Diagnostic Data Review Pulmonary Function Test FEV1:: 51 FVC:: 63 FEV1/FVC%:: 90 Gold Classification: GOLD class I (mild COPD) with FEV1/FVC<70%, FEV1<80% predicted Documented by User: Dr. Deny Del Angel MD 04/29/24 18:54 History of Present Illness Medications Home Medications hydroxychloroquine 200 mg tablet 200 mg PO DAILYCM 07/18/19 potassium PO DAILY 12/14/22 psyllium husk 3.4 gram/5.4 gram oral powder (Metamucil) 1 tbsp PO DAILY 12/14/22 azithromycin 250 mg tablet See Rx Instructions PO .COMPLEX #6 tabs 11/08/23 glucosamine sulfate 2KCl 1,000 mg tablet (Glucosamine Relief) 1,000 mg PO BID 11/08/23 methylprednisolone 4 mg tablets in a dose pack (Medrol (Jerad)) See Rx Instructions PO PER PKG DIR #21 tabs 11/08/23 albuterol sulfate 2.5 mg/3 mL (0.083 %) solution for nebulization 2.5 mg (3 mL) inhalation Q6H PRN shortness of breath or wheezing #180 mL 12/18/23 albuterol sulfate 90 mcg/actuation aerosol inhaler 2 puff inhalation Q6H PRN shortness of breath or wheezing #8.5 grams 12/18/23 ascorbic acid (vitamin C) 500 mg capsule 500 mg PO .qd #90 caps 12/18/23 carboxymethylcellulose sodium 0.5 % eye drops (Refresh Tears) 2 drp ophthalmic (eye) BID PRN dry eye(s) #30 mL 12/18/23 cetirizine 10 mg tablet 10 mg PO DAILY allergies #90 tabs 12/18/23 cholecalciferol (vitamin D3) 125 mcg (5,000 unit) capsule 125 mcg PO DAILY #90 caps 12/18/23 fluticasone propionate 230 mcg-salmeterol 21 mcg/actuation HFA inhaler (Advair HFA) 2 puff inhalation BID #12 grams 12/18/23 meloxicam 15 mg tablet 15 mg PO DAILY #90 tabs 12/18/23 montelukast 10 mg tablet 10 mg PO DAILY PRN allergy symptoms #90 tabs 12/18/23 zinc acetate 50 mg (zinc) capsule (Galzin) 50 mg PO DAILY #90 caps 12/18/23 nystatin 100,000 unit/mL oral suspension 1 ml PO TID 7 days #30 mL 01/05/24 hydrocodone-acetaminophen 5-325mg 5mg-325mg 1 tab PO Q6H PRN PRN Pain 3 days #10 TABLETS 03/06/24 Allergies Allergies aspirin Allergy (Verified 03/06/24 11:17) Shortness of breath metronidazole (From Flagyl) Allergy (Verified 03/06/24 11:17) Abd cramps/diarrhea risedronate sodium Allergy (Verified 03/06/24 11:17) NEEDS FOLLOW-UP Seasonal Allergies: Uncoded Allergy (Verified 03/06/24 11:17) NEEDS FOLLOW-UP Sulfa (Sulfonamide Antibiotics) Allergy (Verified 03/06/24 11:17) Other Sleep Disorder Evaluation STOP Results: Positive Past Medical History Medical History Past Medical History (Updated 03/14/24 @ 00:03 by Beto Lazar) History of stomach ulcers Z87.11 Vitamin deficiency E56.9 Vision problems H54.7 Osteoarthritis M19.90 Hives L50.9 Low calcium levels E83.51 Hearing problem H91.90 Cataracts, bilateral H26.9 Bone fracture T14.8XXA Arthritis M19.90 Seasonal allergies J30.2 Asthma J45.909 Surgical History Past Surgical History (Updated 03/06/24 @ 13:[address] Regan Krueger, DO) Hx of cholecystectomy Z90.49 History of tonsillectomy Z90.89 History of hysterectomy Z90.710 Significant Family History Family History Mother Alzheimers disease Mental disorder Osteoporosis Brother COPD (chronic obstructive pulmonary disease) Respiratory disease Severe allergy Father Heart disease Osteoporosis H/O heart bypass surgery, Onset Age: 81 double carotoid a quad bypasss lived to be 94 Other Arthritis Risk Factor Assessment Obesity Weight in Pounds: 159.0 lbs Body Mass Index (BMI): 29.5 For Smoking Smoking Risk Guidelines For Dyslipidemia Dyslipidemia Risk Guidelines For Diabetes Mellitus Diabetes Risk Guidelines For Obesity/Overweight Obesity/Overweight Risk Guidelines For Hypertension Hypertension Risk Guidelines For Sedentary Lifestyle Sedentary Lifestyle Risk Guidelines For Depression Depression Risk Guidelines
--- NOTE | 2024-04-23 07:57 | EX.OP.PR.TP ---
General Information2 General Information Admitting Diagnosis: Paralysis of Diaphragm, asthma, non-smokers COPD Secondary Diagnosis: Asthma, Rheumatoid arthritis Gold Classification:: GOLD 1: Mild Personal Learning Style/Barriers Personal Learning Style:: Audio/Visual and Written Barriers to Learning: Vision impaired Stage of change r/t lifestyle modifications: Contemplation Educational Classes SD: Breathing Retraining: Initial Assessment, Exercise: Initial Assessment and Oxygen therapy: Initial Assessment (Home oxygen at ) Education/Goals Individual Counseling: Initial Assessment: High Blood Pressure and Overweight/Obesity (BMI 29.5) SD Patient Goals: Increase muscle strength: Initial Assessment, Experience less dyspnea: Initial Assessment, Improve energy level: Initial Assessment, Participate in home exercise: Initial Assessment and Improve the ability to cope with ADLs: Initial Assessment Exercise - Initial Assessment Visit Date of Eval: 04/23/24 Session Number:: 0 (Pre-program evaluation) Problem/Goals Problems: Deconditioning, Knowledge deficit exercise guidelines and Knowledge deficit exercise safety Goals:: SD: 2-3/wk for 18 weeks [36 sessions] Functional Capacity Test Number of feet walked: 0 (was unable to complete test, fell fracturing right arm.) Physician Prescribed Exercise Modalities: Treadmill, Schwinn Airdyne AD-7 and SciFit Pro-II Ergometer Frequency (days/week): 3 Duration (Minutes):: 30-45 Intensity: 60-80% of age predicted maximum heart rate reserve Current METSs:: 2.0 Target HR:: 122 (THRR 93-122) Resting Blood Pressure: 109/63 Minimum SpO2 with exercise: 85 EKG Type: Sinus Rhythm Plan Plan and Plan to Review:: Benefits of exercise, Core components of exercise, How to measure dyspnea level, How to monitor dyspnea level, Exercise intensity, Exercise safety guideline, Home exercise guidelines and [place]: 3-4/11-13 Home Exercise Mode: Walking Exercise - 30-Day Assessment Visit Date of Eval: 04/23/24 Session Number:: 0 (Pre-program evaluation) Physician Prescribed Exercise Modalities: Treadmill, Schwinn Airdyne AD-7 and SciFit Pro-II Ergometer Current METSs:: 2.0 Target HR:: 122 (THRR 93-122) Resting Blood Pressure: 109/63 Minimum SpO2 with exercise: 85 EKG Type: Sinus Rhythm Exercise - 60-Day Assessment Visit Date of Eval: 06/18/24 Session Number:: 0 (Pre-program evaluation) Physician Prescribed Exercise Modalities: Treadmill, Schwinn Airdyne AD-7 and SciFit Pro-II Ergometer Target HR:: 122 (THRR 93-122) Resting Blood Pressure: 109/63 Minimum SpO2 with exercise: 85 EKG Type: Sinus Rhythm Exercise - 90-Day Assessment Visit Date of Eval: 04/23/24 Session Number:: 0 (Pre-program evaluation) Physician Prescribed Exercise Modalities: Treadmill, Schwinn Airdyne AD-7 and SciFit Pro-II Ergometer Current METSs:: 2.0 Target HR:: 122 (THRR 93-122) Resting Blood Pressure: 109/63 Minimum SpO2 with exercise: 85 EKG Type: Sinus Rhythm Exercise - Final Assessment Visit Session Number:: 0 (Pre-program evaluation) Functional Capacity Test Number of feet walked: 0 (was unable to complete test, fell fracturing right arm.) Physician Prescribed Exercise Modalities: Treadmill, Schwinn Airdyne AD-7 and SciFit Pro-II Ergometer Current METSs:: 2.0 Resting Blood Pressure: 109/63 Minimum SpO2 with exercise: 85 EKG Type: Sinus Rhythm Nutrition/Wt Mgmt - Initial Visit Date of Eval: 04/23/24 Session Number:: 0 (pre-program evaluation) Problems/Goals Problems: Overweight Goals: BMI 21-25 and Wt Loss 1-2 lbs per week Weight Management Knowledge Deficit Management of:: Overweight Admit Height:: 5 ft 1.5 in Admit Weight:: 159 lb Admit BMI:: 29.5 Intervention Referral to dietitian:: Yes Will attend diet classes:: Yes Intervention/Plan: Instruct on ideal BMI & set weight loss goal w/patient and Refer to Structured Weight Loss program as appropriate Plan Nutrition Plan: Yes: Review BMI or WC & identify target wt & strategies for wt control and Yes: Nutrition education class: Nutrition/Wt Mgmt - 30-Day Visit Session Number:: 0 (pre-program evaluation) Weight Management Height: 5 ft 1.5 in Weight:: 159 lb BMI: 29.5 Nutrition/Wt Mgmt - 60-Day Visit Session Number:: 0 (pre-program evaluation) Weight Management Height: 5 ft 1.5 in Weight:: 159 lb BMI: 29.5 Nutrition/Wt Mgmt - 90-Day Visit Session Number:: 0 (pre-program evaluation) Weight Management Height: 5 ft 1.5 in Weight:: 159 lb BMI: 29.5 Nutrition/Wt Mgmt - Final Visit Session Number:: 0 (pre-program evaluation) Weight Management Height: 5 ft 1.5 in Weight:: 159 lb BMI: 29.5 Psychosocial - Initial Assess Visit Date of Edilma: 04/23/24 Session Number:: 0 (pre-program evaluation) Problems/Goals History of Emotional Disorders: None Psychosocial Goals: 1. Patient is free from overwhelming symtoms of depression (or anxiety, 2. Identifies personal stressors & states the strategies for managing, 3. Identifies activities to decrease isolation and/or symptoms of, 4. Improved psychosocial coping skills., 5. Verbalizes coping strategies. and 7. Improved Q.O.L. Psychosocial Test Tool Used:: Pulmonary QOL and PHQ-9 Questionnaire Referred to MD for counseling:: No Referral to Behavioral Health PS - Interventions: Yes: Attend Stress Management Classes and No: Referral to Behavioral Health if PHQ-9 score >9:, No: Referral to [facility] and No: Referral to Physician if PHQ-9 if score is 5-9: Intervention/Plan: See List Interventions/Plan:: Assess stressors,coping strategies & signs of derpression on admission, Instruct/assist pt to develop coping & personal stress Mgt strategies, Instruct patient to recognize signs & symptoms of depression and Instruct patient to recog Psychosocial - 30-Day Visit Session Number:: 0 (pre-program evaluation) Problems/Goals History of Emotional Disorders: None Psychosocial Goals: 1. Patient is free from overwhelming symtoms of depression (or anxiety, 2. Identifies personal stressors & states the strategies for managing, 3. Identifies activities to decrease isolation and/or symptoms of, 4. Improved psychosocial coping skills., 5. Verbalizes coping strategies. and 7. Improved Q.O.L. Psychosocial Test Tool Used:: Pulmonary QOL and PHQ-9 Questionnaire Referred to MD for counseling:: No Referral to Behavioral Health PS - Interventions: Yes: Attend Stress Management Classes and No: Referral to Behavioral Health if PHQ-9 score >9:, No: Referral to [facility] and No: Referral to Physician if PHQ-9 if score is 5-9: Plan Interventions/Plan:: Assess stressors,coping strategies & signs of derpression on admission, Instruct/assist pt to develop coping & personal stress Mgt strategies, Instruct patient to recognize signs & symptoms of depression and Instruct patient to recog Psychosocial - 60-Day Visit Session Number:: 0 (pre-program evaluation) Problems/Goals History of Emotional Disorders: None Psychosocial Goals: 1. Patient is free from overwhelming symtoms of depression (or anxiety, 2. Identifies personal stressors & states the strategies for managing, 3. Identifies activities to decrease isolation and/or symptoms of, 4. Improved psychosocial coping skills., 5. Verbalizes coping strategies. and 7. Improved Q.O.L. Psychosocial Test Tool Used:: Pulmonary QOL and PHQ-9 Questionnaire Referred to MD for counseling:: No Referral to Behavioral Health PS - Interventions: Yes: Attend Stress Management Classes and No: Referral to Behavioral Health if PHQ-9 score >9:, No: Referral to [facility] and No: Referral to Physician if PHQ-9 if score is 5-9: Plan Interventions/Plan:: Assess stressors,coping strategies & signs of derpression on admission, Instruct/assist pt to develop coping & personal stress Mgt strategies, Instruct patient to recognize signs & symptoms of depression and Instruct patient to recog Psychosocial - 90-Day Visit Session Number:: 0 (Pre-program evaluation) Problems/Goals History of Emotional Disorders: None Psychosocial Goals: 1. Patient is free from overwhelming symtoms of depression (or anxiety, 2. Identifies personal stressors & states the strategies for managing, 3. Identifies activities to decrease isolation and/or symptoms of, 4. Improved psychosocial coping skills., 5. Verbalizes coping strategies. and 7. Improved Q.O.L. Psychosocial Test Tool Used:: Pulmonary QOL and PHQ-9 Questionnaire Referred to MD for counseling:: No Referral to Behavioral Health PS - Interventions: Yes: Attend Stress Management Classes and No: Referral to Behavioral Health if PHQ-9 score >9:, No: Referral to [facility] and No: Referral to Physician if PHQ-9 if score is 5-9: Plan Interventions/Plan:: Assess stressors,coping strategies & signs of derpression on admission, Instruct/assist pt to develop coping & personal stress Mgt strategies, Instruct patient to recognize signs & symptoms of depression and Instruct patient to recog Psychosocial - Final Assess Visit Session Number:: 0 (Pre-program evaluation) Problems/Goals History of Emotional Disorders: None Psychosocial Goals: 1. Patient is free from overwhelming symtoms of depression (or anxiety, 2. Identifies personal stressors & states the strategies for managing, 3. Identifies activities to decrease isolation and/or symptoms of, 4. Improved psychosocial coping skills., 5. Verbalizes coping strategies. and 7. Improved Q.O.L. Psychosocial Test Tool Used:: Pulmonary QOL and PHQ-9 Questionnaire Referred to MD for counseling:: No Referral to Behavioral Health PS - Interventions: Yes: Attend Stress Management Classes and No: Referral to Behavioral Health if PHQ-9 score >9:, No: Referral to [facility] and No: Referral to Physician if PHQ-9 if score is 5-9: Plan Interventions/Plan:: Assess stressors,coping strategies & signs of derpression on admission, Instruct/assist pt to develop coping & personal stress Mgt strategies, Instruct patient to recognize signs & symptoms of depression and Instruct patient to recog Oxygen & Oxygen Titration Init Visit Date of Eval: 04/23/24 Session Number:: 0 (pre-program evaluation) Initial Assessment Oxygen on Admission: Oxygen at HS SpO2:: 85 FiO2:: 2 Patient Reports:: Non-productive cough Goal Oxygen & Oxygen Tritration Goals: Effective hypoxemia control and Uses O2 as Rx'd/safely Plans Plan: Monitor SpO2 rest & with exercise, Train appropriate O2 use at rest, Train appropriate O2 use with exercise and Train O2 safety & systems Reviewed prescribed medications:: Purpose, Schedule, Side effects and Importance of compliance Instruct correct technique/timing & care:: MDI, DPI and Return demo use of inhaler Bronchial Hygiene Plan: Controlled cough, Hydration and Hand hygiene Oxygen & Oxygen Titration 30D Visit Session Number:: 0 (Pre-program evaluation) Reassessment SpO2:: 85 Oxygen & Oxygen Titration 60D Visit Session Number:: 0 (Pre-program evaluation) Reassessment SpO2:: 85 Oxygen & Oxygen Titration 90D Visit Session Number:: 0 (Pre-program evaluation) Reassessment SpO2:: 85 Oxygen & Oxygen Titration [place]EN[place] Visit Session Number:: 0 (Pre-program evaluation) Reassessment SpO2:: 85 Core Components - Initial Visit Date of Eval: 04/23/24 Session Number:: 0 (Pre-program evaluation) Hypertension Hypertension Diagnosis:: Hypertension ICD-10 I10 BP: 109/63 [place] [employer] Hypertension Guidelines Outcomes/Goals: Able to verbalize/achieve optimal blood pressure <130/80 Tobacco - Initial Assessment Tobacco Program Goals Smoking Cessation Referral:: No Individual Education/Counseling:: No Education Schedule Given:: Yes Gave Education Materials For:: Pulmonary Disease, Breathing Techniques, Pulmonary A&P and Stress & Relaxation Exacerbation Mgmt & Airway Clearance Problems:: Hypoxemia and Needs O2 Rx recommendation Hypoxemia Goals:: Hypoxemia managed and Port system Goals: Pt demonstrates effective cough, effective secretion clearance. and Pt describes signs and symptoms of infection. Patient Reports:: Non-productive cough Plan: Monitor SpO2 rest & with exercise, Train appropriate O2 use at rest, Train appropriate O2 use with exercise and Train O2 safety & systems Instruct correct technique/timing & care:: MDI, DPI and Return demo use of inhaler Bronchial Hygiene Plan: Controlled cough, Hydration and Hand hygiene Medication Interventions/plans: Instruct importance of taking meds as ordered & assist problem solving Medication Goals: Correct technique/timing & care of MDI, DPI, nebulizer, and spacer. Does pt report taking home meds as prescribed?: Yes Medications: Yes: MDI and Yes: DPI and No: NEB and No: Spacer Reviewed prescribed medications:: Purpose, Schedule, Side effects and Importance of compliance Diabetes Diabetes:: No Referral to dietitian:: Yes Will attend diet classes:: Yes Core Components - 30 DAYS Visit Session Number:: 0 (Pre-program evaluation) Hypertension Hypertension Diagnosis:: Hypertension ICD-10 I10 Resting Blood Pressure:: 109/63 [place] [employer] Hypertension Guidelines Outcomes/Goals: Able to verbalize/achieve optimal blood pressure <130/80 Tobacco - 30-Day Tobacco Program Goals Smoking Cessation Referral:: No Education Schedule Given:: Yes Gave Education Materials For:: Pulmonary Disease, Breathing Techniques, Pulmonary A&P and Stress & Relaxation Diabetes Diabetes:: No Core Components - 60 DAYS Visit Session Number:: 0 (Pre-program evaluation) Hypertension Hypertension Diagnosis:: Hypertension ICD-10 I10 Resting Blood Pressure:: 109/63 [place] [employer] Hypertension Guidelines Outcomes/Goals: Able to verbalize/achieve optimal blood pressure <130/80 Tobacco - 60-Day Tobacco Program Goals Smoking Cessation Referral:: No Individual Education/Counseling:: No Education Schedule Given:: Yes Gave Education Materials For:: Pulmonary Disease, Breathing Techniques, Pulmonary A&P and Stress & Relaxation Diabetes Diabetes:: No Core Components - 90 DAYS Visit Session Number:: 0 (Pre-program evaluation) Hypertension Hypertension Diagnosis:: Hypertension ICD-10 I10 Resting Blood Pressure:: 109/63 [place] [employer] Hypertension Guidelines Outcomes/Goals: Able to verbalize/achieve optimal blood pressure <130/80 Tobacco - 90-Day Tobacco Program Goals Smoking Cessation Referral:: No Individual Education/Counseling:: No Education Schedule Given:: Yes Gave Education Materials For:: Pulmonary Disease, Breathing Techniques, Pulmonary A&P and Stress & Relaxation Diabetes Diabetes:: No Core Components - Final Visit Session Number:: 0 (Pre-program evaluation) Hypertension Hypertension Diagnosis:: Hypertension ICD-10 I10 Resting Blood Pressure:: 109/63 [place] [employer] Hypertension Guidelines Outcomes/Goals: Able to verbalize/achieve optimal blood pressure <130/80 Tobacco - Final Tobacco Program Goals Smoking Cessation Referral:: No Individual Education/Counseling:: No Education Schedule Given:: Yes Diabetes Diabetes:: No Patient Health Questionnaire PHQ-9 Screening Initial Assessment: 1. Little interest or pleasure in doing things: Not at all 2. Feeling down, depressed, or hopeless: Not at all 3. Trouble falling or staying asleep, or sleeping too much: More than half the days 4. Feeling tired or having little energy: Nearly every day 5. Poor appetite or overeating: More than half the days 6. Feeling bad about yourself -- or that you are a failure or have let yourself or your family down: Several days 7. Trouble concentrating on things, such as reading the newspaper or watching television: Not at all 8. Moving or speaking so slowly that other people could have noticed. Or the opposite - being so fidgety or restless that you have been moving around a lot more than usual: Several days 9. Thoughts that you would be better off , or of hurting yourself in some way: Not at all How difficult have these problems made it for you to do your work, take care of things at home, or get along with other people?: Somewhat difficult Total Score: 9 Knowledge Questionaire (BCKQ) Information Information: [place] COPD Knowledge Questionnaire (BCKQ) This questionnaire is designed to find out what you know about your lung problem. It should be completed without help form anyone else. This usually takes between 10 and 20 minutes. Your answers will help us to find out what information you need to help you to understand and manage your lung condition. [place] the [place] which you think is the correct answer. Questions 1. In COPD: b. COPD can only be confirmed by breathing tests: True c. In COPD ther is usually gradual worsening over time: True d. In COPD oxygen levels in the blood are always low: False e. COPD is usually in people less than 40 years old: False 2. COPD: [place] than 80% of COPD cases are caused by cigarette smoking: True b. COPD can be caused by occupational dust exposure: True c. Longstanding asthma can develop into COPD: Don't know d. COPD is commonly an inherited disease: False e. Women are less vunerable to the effects of cigarette than men: False 3. The following symptoms are Common in COPD: a. Swelling of the ankles is common in COPD:: Don't know b. Fatigue [tiredness] is common in COPD: True c. Wheezing is common in COPD: True d. Crushing chest pain is common in COPD: True e. Rapid weight loss is common in COPD: Don't know 4. Breathlessness in COPD: a. Severe breathlessness prevents travel by air: Don't know b. Breathlessness can be worsened by eating large meals: True c. Breathlessness means that your oxygen levels are low: False d. Breathlessness is a normal response to exercise: False e. Breathlessness is primarily caused by a narrowing of the bronchial tubes: Don't know 5. Phlegm (sputum): a. Coughing phlegm is a common symptom in COPD: True b. Clearing phlegm is more difficult if you get dehydrated: True c. Bronchodilator inhalers can help clear phlegm: True d. Phlegm causes harm if swallowed: Don't know e. Clearing phlegm can be assisted by breathing exercises: True 6. Chest infections / exacerbations: a. Chest infections often cause coughing of blood: False b. Chest infection phlegm usually becomes coloured (ylw/grn): True cExerbations (episodes of worsening) can occur in the absence of chest infection: Don't know d. Chest infections are always accompanied by a high temperature: Don't know e. Steroid tablets should be taken whenever there is an exacerbation: Don't know 7. Excercise in COPD: aWalking excercises better than breathing to improve fitness: False b. Exercise should be avoided as it strains the lungs: False c. Exercise can help maintain your bone density: True d. Exercise helps relieve depression: True e. Exercise should be stopped if it makes you breathless: False 8. Smoking: a. Stopping smoking will reduce the risk of heart disease: True b. Stopping smoking will slow down further lung damage: False c. Stopping smoking is pointless as the damage is done: Don't know d.Stopping smoking usually results in improved lung function: Don't know eNicotine replacement therapy only available on prescription: Don't know 9. Vaccination: a. A flu jab is recommended every year: True b. You can get flu from having a flu jab: Don't know c. You can only have a flu jab if you are 65 or over: False d. A pneumonia jab protects against all forms of pneumonia: False e.You can have a pneumonia jab and a flu job on the same day: True 10. Inhaled bronchodilators: a. Bronchodilators act quickly (within 10 minutes): Don't know b. Both short & long acting bronchodilators can be taken on the same day: Don't know c. Spacers (volumatic,nebuhaler,serochamber)should be dried w/atowel after washing: True d. A spacer device increases the medication to the lungs: False e. Tremor may be a side effect of bronchodilators: True 11. Antibiotic treatment in COPD: a. To be effective, the course should last at least 10 days: True b. Excessive use of antibiotics can cause resistant bacteria (germs): True c. Antibiotics will clear all chest infections: False d. Antibiotic treatment is necessary for an exacerbation (worsening) however mild: False e. Seek advice if antibiotics cause severe diarrhoea: Don't know 12. Steroid tablets given for COPD (eg Prednisolone): a. Steroid tablets help strengthen muscles: False b. Steroid tablets should be avoided if there is a chest infection: Don't know c. The risk of long-term side effects due to steroids is less w/short courses then w/continous treatment: False dIndigestion is common side effect from using steroid tablet: Don't know e. Steroid tablets can increase your appetite: True 13. Inhaled steroids (brown, red or orange): a. Inhaled steroids should be stopped if you are given steroid tablets: Don't know bSteroid inhalers can be used for rapid relief breathlessnes: True c. Spacer devices reduce the risk of getting thrush in the mouth: True d.Steroid inhaler should be taken before your bronchodilator: Don't know e. Inhaled steroids improve lung function in COPD: True COPD Knowledge Test Total Score:: 34 Self-Efficacy 6-Item Scale Initial Assessment: We would like to know how confident you are in doing certain activities. Please select your confidence level for: Fatigue Select Number: 8 Physical Discomfort or Pain Select Number: 8 Emotional Distress Select Number: 8 Other Symptoms or Health Problems Select Number: 6 Different Tasks and Activities Select Number: 9 Medication Select Number: 8 Total Score:: 7 Nutrition Survey Nutrition Survey Instructions Scoring Instructions Nutrition Survey Initial: Have you lost >10 lbs over the past 2 months without trying?: No Are you following a special diet at home for diabetes, low fat, or low salt?: No Are you interested in meeting with a dietitian for help understanding your diet?: No Do you eat less than 3 meals a day?: No Do you eat fatty meats (dubois, sausage, ribs, etc), fried foods, desserts, large amounts of salad dressings, margarine, butter, or cheese most days?: No Do you have food allergies? [Enter types in comment field]: No Do you eat in restaurants more than 3 times a week?: No Do you season food with salt, seasoning salt, or garlic salt?: Yes Do you used canned, boxed, frozen meals, or soups, seasoning packets?: No Total Score:: 1
[2024-04-23 08:23] VITALS: BP 109/63; O2SAT 85; BMI 29.5
[2024-04-23 08:43] VITALS: BP 109/63; PULSE 77; RESP 16; TEMP 37; O2SAT 93
[2024-04-29 18:54] VITALS: BMI 29.5
== END | disposition home or self-care (01) ==
LOC: PR 07:49
PROVIDERS: PCP Internal Medicine
DX: J98.6 Disorders of diaphragm (principal); J44.9 Chronic obstructive pulmonary disease, unspecified

== ENCOUNTER 2024-05-03 10:15 | Outpatient (RCR) | payer MEDICARE, OTHER, SELFPAY ==
[2024-04-23 08:23] VITALS: BMI 29.5
== END 2024-05-05 23:59 ==
LOC: PR 10:15
PROVIDERS: PCP Internal Medicine; Referring Provider Thoracic Surgery (Cardiothoracic Vascular Surgery); Visit Provider Thoracic Surgery (Cardiothoracic Vascular Surgery)
DX: J98.6 Disorders of diaphragm (principal)
CPT/HCPCS: 97150; G0239

== ENCOUNTER 2024-06-05 10:15 | Outpatient (RCR) | payer MEDICARE, OTHER, SELFPAY ==
[2024-04-23 08:23] VITALS: BMI 29.5
--- NOTE | 2024-05-24 09:13 | PCM.PR.TP ---
Exercise - Initial Assessment Visit Session Number:: 9 Physician Prescribed Exercise Modalities: Treadmill, Schwinn Airdyne AD-7 and SciFit Stepper Current METSs:: 3.6 Target HR:: 133 Current RPD:: 2-3 Maximum Exercise HR:: 134 Resting Blood Pressure: 120/60 Maximum Exercise Blood Pressure: 126/64 Minimum SpO2 with exercise: 89 EKG Type: NSR to ST Nutrition/Wt Mgmt - Initial Visit Session Number:: 9 Weight Management Admit Height:: 5 ft 1.5 in Admit Weight:: 159 lb Admit BMI:: 29.5 Nutrition/Wt Mgmt - 30-Day Visit Date of Eval: 05/24/24 Session Number:: 9 Weight Management Height: 5 ft 1.5 in Weight:: 159 lb BMI: 29.5 Weight Goals Progress:: Progressing (pt to attend nutrition class) Nutrition/Wt Mgmt - 60-Day Visit Session Number:: 9 Weight Management Height: 5 ft 1.5 in Weight:: 159 lb BMI: 29.5 Nutrition/Wt Mgmt - 90-Day Visit Session Number:: 9 Weight Management Height: 5 ft 1.5 in Weight:: 159 lb BMI: 29.5 Nutrition/Wt Mgmt - Final Visit Session Number:: 9 Weight Management Height: 5 ft 1.5 in Weight:: 159 lb BMI: 29.5 Psychosocial - Initial Assess Visit Session Number:: 9 Intervention/Plan: See List Interventions/Plan:: Assess stressors,coping strategies & signs of derpression on admission, Instruct/assist pt to develop coping & personal stress Mgt strategies, Refer to Behavioral Health if appropriate, Refer to Physician if appropriate, Instruct patient to recognize signs & symptoms of depression, Instruct patient to recog and Other additional plan/intervention Psychosocial - 30-Day Visit Date of Eval: 05/24/24 Session Number:: 9 Plan Interventions/Plan:: Assess stressors,coping strategies & signs of derpression on admission, Instruct/assist pt to develop coping & personal stress Mgt strategies, Refer to Behavioral Health if appropriate, Refer to Physician if appropriate, Instruct patient to recognize signs & symptoms of depression, Instruct patient to recog and Other additional plan/intervention Psychosocial - 60-Day Visit Session Number:: 9 Plan Interventions/Plan:: Assess stressors,coping strategies & signs of derpression on admission, Instruct/assist pt to develop coping & personal stress Mgt strategies, Refer to Behavioral Health if appropriate, Refer to Physician if appropriate, Instruct patient to recognize signs & symptoms of depression, Instruct patient to recog and Other additional plan/intervention Psychosocial - 90-Day Visit Session Number:: 9 Plan Interventions/Plan:: Assess stressors,coping strategies & signs of derpression on admission, Instruct/assist pt to develop coping & personal stress Mgt strategies, Refer to Behavioral Health if appropriate, Refer to Physician if appropriate, Instruct patient to recognize signs & symptoms of depression, Instruct patient to recog and Other additional plan/intervention Psychosocial - Final Assess Visit Session Number:: 9 Plan Interventions/Plan:: Assess stressors,coping strategies & signs of derpression on admission, Instruct/assist pt to develop coping & personal stress Mgt strategies, Refer to Behavioral Health if appropriate, Refer to Physician if appropriate, Instruct patient to recognize signs & symptoms of depression, Instruct patient to recog and Other additional plan/intervention Oxygen & Oxygen Titration Init Visit Session Number:: 9 Initial Assessment SpO2:: 89 Oxygen & Oxygen Titration 30D Visit Date of Eval: 05/24/24 Session Number:: 9 Reassessment Reassessment- 30 Days: Demonstrate knowledge of O2 Rx at rest & w/exercise SpO2:: 89 Oxygen & Oxygen Titration 60D Visit Date of Eval: 05/24/24 Session Number:: 9 Reassessment SpO2:: 89 Oxygen & Oxygen Titration 90D Visit Date of Eval: 05/24/24 Session Number:: 9 Reassessment SpO2:: 89 Oxygen & Oxygen Titration KSENIA Visit Date of Eval: 05/24/24 Session Number:: 9 Reassessment SpO2:: 89 Core Components - Initial Visit Session Number:: 9 Hypertension Hypertension Diagnosis:: Hypertension ICD-10 I10 BP: 120/60 [employer] Hypertension Guidelines Blood Pressure: 126/64 Outcomes/Goals: Able to verbalize/achieve optimal blood pressure <130/80, Incorporates diet changes & exercise for blood pressure control by DC and Other additional outcomes/goals Tobacco - Initial Assessment Tobacco Program Goals Tobacco Use: Non-smoker Diabetes Diabetes:: No Core Components - 30 DAYS Visit Date of Eval: 05/24/24 Session Number:: 9 Hypertension Hypertension Diagnosis:: Hypertension ICD-10 I10 Resting Blood Pressure:: 120/60 [employer] Hypertension Guidelines Peak Exercise Blood Pressure:: 126/64 Change in medication: No Outcomes/Goals: Able to verbalize/achieve optimal blood pressure <130/80, Incorporates diet changes & exercise for blood pressure control by DC and Other additional outcomes/goals Interventions/plan: Instruct on optimal blood pressure, hypertension & medications, Instruct on effects of sodium, alcohol, stress, exercise &hypertension and Other additional plan/interventions 30 day Reassessments:: Progressing Reassessment Notes & Comments:: pt encouraged to take her meds Tobacco - 30-Day Tobacco Program Goals Tobacco Use: Non-smoker Medication Medication list reviewed:: Yes Taking medications 100% of the time:: Met Diabetes Diabetes:: No Core Components - 60 DAYS Visit Session Number:: 9 Hypertension Hypertension Diagnosis:: Hypertension ICD-10 I10 Resting Blood Pressure:: 120/60 [employer] Hypertension Guidelines Peak Exercise Blood Pressure:: 126/64 Change in medication: No Outcomes/Goals: Able to verbalize/achieve optimal blood pressure <130/80, Incorporates diet changes & exercise for blood pressure control by DC and Other additional outcomes/goals Interventions/plan: Instruct on optimal blood pressure, hypertension & medications, Instruct on effects of sodium, alcohol, stress, exercise &hypertension and Other additional plan/interventions 60 day Reassessments:: Progressing Reassessment Notes & Comments:: pt encouraged to take her meds Tobacco - 60-Day Tobacco Program Goals Tobacco Use: Non-smoker Medication Taking medications 100% of the time:: Met Diabetes Diabetes:: No Core Components - 90 DAYS Visit Session Number:: 9 Hypertension Hypertension Diagnosis:: Hypertension ICD-10 I10 Resting Blood Pressure:: 120/60 [employer] Hypertension Guidelines Peak Exercise Blood Pressure:: 126/64 Outcomes/Goals: Able to verbalize/achieve optimal blood pressure <130/80, Incorporates diet changes & exercise for blood pressure control by DC and Other additional outcomes/goals Interventions/plan: Instruct on optimal blood pressure, hypertension & medications, Instruct on effects of sodium, alcohol, stress, exercise &hypertension and Other additional plan/interventions 90 day Reassessments:: Progressing Reassessment Notes & Comments:: pt encouraged to take her meds Tobacco - 90-Day Tobacco Program Goals Tobacco Use: Non-smoker Diabetes Diabetes:: No Core Components - Final Visit Session Number:: 9 Hypertension Hypertension Diagnosis:: Hypertension ICD-10 I10 Resting Blood Pressure:: 120/60 [employer] Hypertension Guidelines Peak Exercise Blood Pressure:: 126/64 Outcomes/Goals: Able to verbalize/achieve optimal blood pressure <130/80, Incorporates diet changes & exercise for blood pressure control by DC and Other additional outcomes/goals Tobacco - Final Tobacco Program Goals Tobacco Use: Non-smoker Diabetes Diabetes:: No Patient Health Questionnaire PHQ-9 Screening 30-Day Re-eval Assessment: 1. Little interest or pleasure in doing things: Not at all 2. Feeling down, depressed, or hopeless: Not at all 3. Trouble falling or staying asleep, or sleeping too much: More than half the days 4. Feeling tired or having little energy: Nearly every day 5. Poor appetite or overeating: More than half the days 6. Feeling bad about yourself -- or that you are a failure or have let yourself or your family down: Several days 7. Trouble concentrating on things, such as reading the newspaper or watching television: Not at all 8. Moving or speaking so slowly that other people could have noticed. Or the opposite - being so fidgety or restless that you have been moving around a lot more than usual: Several days 9. Thoughts that you would be better off , or of hurting yourself in some way: Not at all How difficult have these problems made it for you to do your work, take care of things at home, or get along with other people?: Somewhat difficult Total Score: 9 Knowledge Questionaire (BCKQ) Information Information: [facility] COPD Knowledge Questionnaire (BCKQ) This questionnaire is designed to find out what you know about your lung problem. It should be completed without help form anyone else. This usually takes between 10 and 20 minutes. Your answers will help us to find out what information you need to help you to understand and manage your lung condition. Ruben the koi which you think is the correct answer. Self-Efficacy 6-Item Scale 30-Day Re-eval Assessment: We would like to know how confident you are in doing certain activities. Please select your confidence level for: Fatigue Select Number: 8 Physical Discomfort or Pain Select Number: 8 Emotional Distress Select Number: 8 Other Symptoms or Health Problems Select Number: 6 Different Tasks and Activities Select Number: 9 Medication Select Number: 8 Total Score:: 7 Nutrition Survey Nutrition Survey Instructions Scoring Instructions
[2024-05-24 09:23] VITALS: BP 120/60; O2SAT 89; BMI 29.5
[2024-05-24 09:26] VITALS: BP 120/60; BP 126/64
== END 2024-06-05 23:59 ==
LOC: PR 10:15
PROVIDERS: PCP Internal Medicine; Referring Provider Thoracic Surgery (Cardiothoracic Vascular Surgery); Visit Provider Thoracic Surgery (Cardiothoracic Vascular Surgery)
DX: J98.6 Disorders of diaphragm (principal)
CPT/HCPCS: 97150; G0239

== ENCOUNTER 2024-06-18 11:30 | Outpatient (RCR) | payer MEDICARE, OTHER, SELFPAY ==
--- NOTE | 2024-04-05 11:43 | HP.OTEVAL ---
Patient's Visit Information Visit Information Visit Information: NEY WEINBERG is a 78 year old F, referred to Occupational Therapy by Dr. Loy Blackwood MD, with a diagnosis of left intra-articular fx of distal radius, left elbow dislocation. Date of Evaluation: 04/03/24 Occupational Therapist: Josephine Harper, DELMER/Maxwell, CHT Subjective Subjective: This 78 year old female was seen for OT eval with dx of closed intra-articular fracture of distal end of left radius. pt states she was taking a walking test to see about her breathing difficulty, but pt had abdominal pain and fell. This happened on Mar 06 2024. pt then taken to ER was placed in soft cast and sent to ortho. Was able to get to [facility] March 07 and sx was on March 11. pt arrives 3 weeks and 2 days s/p from [facility]. pt arrives with wrist brace on -that is to have a sup/pron trell on but pt has not had it on as she says it it to heavy- just wearing wrist brace Pain left wrist: Current Pain Intensity: 6 Pain Intensity Range: 4 and 6 ROM Elbow: right 0/145 left -10/110 Forearm: right WNL left sup N pron WFL Wrist: right 65/60 left 25/30 Strength Tank Truck Driver: right 45# left NT Lateral Pinch: right 14# left NT Tripod Pinch: right 14# left NT Quick DASH-Disab of Arm,Shoulder& Hand Quick DASH Score: [phone] Goals Goal:100% adherence to protocol: Yes Goal:Daily scar massage when approriate: Yes Goal:ROM equal to unaffected hand: Yes Goal:No pain with affected hand use: Yes Goal:Full use of affected hand in daily activities including work: Yes Rehabilitation General Assessment: pt arrives 3 weeks and 2 days s/p from [facility]. pt in wrist cock-up brace and sling. Pt states she has not been wearing the elbow part of her brace- pt demo with newly healing structures, limited left elbow and wrist ROM. This is limiting pts IND with right UE with ADLs and IADLs at this time. Pt would benefit from skilled OT services 2x week for 8 weeks to return pt to her PLOF. Today therapist ed. pt on light AROM ex for elbow flex/ext only, wrist flex/ext- at this time, along with need of using brace. pt demo understanding and agree to POC. Rehabilitation Potential: Good Anticipated Interventions Anticipated Interventions: A/AAROM/PROM, Strengthening, Scar Care, Triggerpoint Release, Sensory Retraining, Modalities, Orthoses, Joint Protection/Energy Conservation, Ergonomic Education, Education re assistive Equipment, Education re Diagnosis, Caregiver Training and Home Program Visit Plan Frequency: 2x /Week Duration: 2 Months TEXT: Thank you for the opportunity to evaluate your patient. For Medicare and Medicare HMO plans, please review the plan of care and approve it. It will need to be FAXED BACK to us at [phone] for Medicare purposes. Please let me know if there are questions or concerns regarding this plan of care. Physician Signature: Date:
--- NOTE | 2024-05-10 14:50 | HP.PTEVAL_ITS ---
Patient's Visit Information Visit Information Visit Information: NEY WEINBERG is a 79 year old F referred to Physical Therapy by Dr. Loy Blackwood MD with a diagnosis of L elbow pain. Date of Evaluation: 05/10/24 Physical Therapist: Kamron Croft DPT Visit Plan Frequency: 2x /Week Duration: 6 Weeks Plan: Start with cane AROM flexion, abd progressing to no pain. Add in RTC strengthening/stability exercises as tolerated. Pt. does have a 10# lifting restriction to be aware of for her L wrist. HEP: at IE: mid row, LAE, shoulder IR with GTB Subjective Subjective: Pt. is here today for her initial evaluation with diagnosis of L elbow and shoulder pain. Pt. reports falling and fracturing her L arm earlier this year (closed intra-articular fracture of distal end of left radius. ). Pt. reports having wrist surgery and is doing better there, but is still having some shoulder and elbow pain. Pt. reports no N/T and her fingers are doing much b trent. Pt. is now dealing with more of shoulder pain. She is hopeful to increase her ROM and strength in order to completed all activities without increase in symptoms. She reports no pain at rest. Pt. does have some pain when reaching [place] and behind her and in car. Pt. has not tried any shoulder exercises and is not to lift over 10# with her L wrist at this point in time. Pt. is sleeping well. She is back to driving without much issues. She is having some increased L shoulder pain with ADls and with lifting. Pain L shoulder: Pain Intensity (Out of 10): 2 Objective Objective: POSTURE: Pt. has decent posture in stance, slight rounded shoulders. PALPATION: Pt. has some tenderness at lateral sub acromial space and bicipital groove. NEURO: Normal throughout. ROM: L elbow close to full motion, lacks final degrees of extension. L shoulder: flexion 170deg increase NW at mid range, abd 165deg increase NW at mid range. functional ER C6, functional IR L1 NE. PROM: close to full motion without increase in symptoms. MMT: LUE: shoulder flexion: 16.1# increase NW, abd 9.3# increase NW, ER 8.9#, IR 13.3# Pt. has mild increase NE with flexion and abduction testing. Special Tests L Shoulder Drop Sign - IS Test: Negative L Shoulder Empty Can - SS: Positive L Shoulder Belly Press - SupScap: Negative L Shoulder Neer - Impingement: Positive L Shoulder Morales Demetrius - Impingement: Positive L Elbow Valgus Stress Test - MCL Instability: Negative L Elbow Varus Stress Stest - MCL Instability: Negative Balance/Special Test Scores Quick DASH Score: 47.7250 Goals Goal 1:: LTG: pt. to be I with HEP for shoulder stability and RTC strengthening. Goal Time Frame: 4-6 Weeks Goal 2:: LTG: Pt. to complete all ADLs without increase in L elbow or shoulder pain. Goal Time Frame: 4-6 Weeks Goal 3:: STG: Pt. to have full L elbow extension without increase in symptoms. Goal 4:: LTG: Pt. to have increased L shoulder strength increased by 5# throughout. Goal Time Frame: 4-6 Weeks Goal 5:: LTG: Pt. to have symmetrical B shoulder AROM without increase in symptoms. Goal Time Frame: 4-6 Weeks Rehabilitation Potential Physical Therapy Diagnosis: Pt. has signs and symptoms consistent with L elbow and shoulder pain. Her largest complaint is now of her L shoulder, but her L elbow feels tight at times as well. Pt. would benefit from Pt to address her shoulder symptoms with both AROM and with RTC stability exercises. Rehabilitation Potential: Good Anticipated Interventions Patient/Client Instruction: Educate patient on: Condition, Plan of Care, Risk Factors and Benefits of Fitness Program For the Purpose of:: To facilitate caregiver knowledge, To improve self management, To prevent re-injury, To improve ability to perform tasks related to life management and To improve tolerance to ADL's Therapeutic Exercise to Include: Strength training, Power training, Endurance training, Flexibilty training, Passive ROM, Active ROM and Scapular Strength/Stabilization For the Purpose of:: To decrease pain, To increase ROM, To improve nutrient delivery to tissue and To increase oxygenation perfusion Text: Thank you for the opportunity to evaluate your patient. For Medicare and Medicare HMO plans, please review the plan of care and approve it. It will need to be FAXED BACK to us at [phone] for Medicare purposes. For Medicare only, by signing this I certify the plan of care. Please let me know if there are questions or concerns regarding this plan of care. Physician Signature: Date:_
== END 2024-06-18 19:00 | disposition home or self-care (01) ==
LOC: PT 11:30
PROVIDERS: PCP Internal Medicine; Referring Provider Orthopaedic Surgery; Visit Provider Orthopaedic Surgery
DX: S52.572D Other intraarticular fracture of lower end of left radius, subsequent encounter for closed fracture with routine healing (principal)
CPT/HCPCS: 97110; 97140; 97161; 97166; 97530

== ENCOUNTER 2024-07-05 10:15 | Outpatient (RCR) | payer MEDICARE, OTHER, SELFPAY ==
[2024-05-24 09:23] VITALS: BMI 29.5
[2024-06-06 00:50] VITALS: BP 120/60; BP 126/64; BMI 29.5
--- NOTE | 2024-06-14 08:54 | PCM.PR.TP ---
Exercise - Initial Assessment Visit Session Number:: 19 Physician Prescribed Exercise Modalities: Treadmill, Schwinn Airdyne AD-7 and SciFit Stepper Target HR:: 122 (93-122) Current RPD:: 12-13 Maximum Exercise HR:: 125 Resting Blood Pressure: 102/50 Maximum Exercise Blood Pressure: 140/78 Minimum SpO2 with exercise: 89 EKG Type: NSR to ST with rare ectopy Nutrition/Wt Mgmt - Initial Visit Session Number:: 19 Weight Management Admit Height:: 5 ft 1.5 in Admit Weight:: 159 lb Admit BMI:: 29.5 Nutrition/Wt Mgmt - 30-Day Visit Date of Eval: 06/14/24 Session Number:: 19 Weight Management Height: 5 ft 1.5 in Weight:: 159 lb BMI: 29.5 Nutrition/Wt Mgmt - 60-Day Visit Date of Eval: 06/14/24 Session Number:: 19 Weight Management Height: 5 ft 1.5 in Weight:: 159 lb BMI: 29.5 Weight Goals Progress:: Goal met Nutrition/Wt Mgmt - 90-Day Visit Session Number:: 19 Weight Management Height: 5 ft 1.5 in Weight:: 159 lb BMI: 29.5 Weight Goals Progress:: Goal met Nutrition/Wt Mgmt - Final Visit Session Number:: 19 Weight Management Height: 5 ft 1.5 in Weight:: 159 lb BMI: 29.5 Psychosocial - Initial Assess Visit Session Number:: 19 Intervention/Plan: See List Interventions/Plan:: Assess stressors,coping strategies & signs of derpression on admission, Instruct/assist pt to develop coping & personal stress Mgt strategies, Refer to Behavioral Health if appropriate, Refer to Physician if appropriate, Instruct patient to recognize signs & symptoms of depression, Instruct patient to recog and Other additional plan/intervention Psychosocial - 30-Day Visit Date of Eval: 06/14/24 Session Number:: 19 Plan Interventions/Plan:: Assess stressors,coping strategies & signs of derpression on admission, Instruct/assist pt to develop coping & personal stress Mgt strategies, Refer to Behavioral Health if appropriate, Refer to Physician if appropriate, Instruct patient to recognize signs & symptoms of depression, Instruct patient to recog and Other additional plan/intervention Psychosocial - 60-Day Visit Date of Eval: 06/14/24 Session Number:: 19 Plan Interventions/Plan:: Assess stressors,coping strategies & signs of derpression on admission, Instruct/assist pt to develop coping & personal stress Mgt strategies, Refer to Behavioral Health if appropriate, Refer to Physician if appropriate, Instruct patient to recognize signs & symptoms of depression, Instruct patient to recog and Other additional plan/intervention Psychosocial - 90-Day Visit Session Number:: 19 Plan Interventions/Plan:: Assess stressors,coping strategies & signs of derpression on admission, Instruct/assist pt to develop coping & personal stress Mgt strategies, Refer to Behavioral Health if appropriate, Refer to Physician if appropriate, Instruct patient to recognize signs & symptoms of depression, Instruct patient to recog and Other additional plan/intervention Psychosocial - Final Assess Visit Session Number:: 19 Plan Interventions/Plan:: Assess stressors,coping strategies & signs of derpression on admission, Instruct/assist pt to develop coping & personal stress Mgt strategies, Refer to Behavioral Health if appropriate, Refer to Physician if appropriate, Instruct patient to recognize signs & symptoms of depression, Instruct patient to recog and Other additional plan/intervention Oxygen & Oxygen Titration Init Visit Session Number:: 19 Initial Assessment SpO2:: 89 Oxygen & Oxygen Titration 30D Visit Date of Eval: 06/14/24 Session Number:: 19 Reassessment SpO2:: 89 Oxygen & Oxygen Titration 60D Visit Date of Eval: 06/14/24 Session Number:: 19 Reassessment Reassessment- 60 Days: Demonstrate knowledge of O2 Rx at rest & w/exercise and Using O2 as Rx'd SpO2:: 89 Oxygen & Oxygen Titration 90D Visit Date of Eval: 06/14/24 Session Number:: 19 Reassessment SpO2:: 89 Oxygen & Oxygen Titration KSENIA Visit Date of Eval: 06/14/24 Session Number:: 19 Reassessment SpO2:: 89 Core Components - Initial Visit Session Number:: 19 Hypertension Hypertension Diagnosis:: Hypertension ICD-10 I10 BP: 102/50 [place] [employer] Hypertension Guidelines Blood Pressure: 140/78 Outcomes/Goals: Able to verbalize/achieve optimal blood pressure <130/80, Incorporates diet changes & exercise for blood pressure control by DC and Other additional outcomes/goals Diabetes Diabetes:: No Core Components - 30 DAYS Visit Date of Eval: 06/14/24 Session Number:: 19 Hypertension Hypertension Diagnosis:: Hypertension ICD-10 I10 Resting Blood Pressure:: 102/50 [place] [employer] Hypertension Guidelines Peak Exercise Blood Pressure:: 140/78 Change in medication: No Outcomes/Goals: Able to verbalize/achieve optimal blood pressure <130/80, Incorporates diet changes & exercise for blood pressure control by DC and Other additional outcomes/goals Interventions/plan: Instruct on optimal blood pressure, hypertension & medications, Instruct on effects of sodium, alcohol, stress, exercise &hypertension and Other additional plan/interventions 30 day Reassessments:: Met Exacerbation Mgmt & Airway Clearance Reassessment: Demonstrates knowledge of O2 Rx at rest, Demonstrates knowledge of O2 Rx with exercise and Using O2 as prescribed Medication Taking medications 100% of the time:: Met Diabetes Diabetes:: No Core Components - 60 DAYS Visit Date of Eval: 06/14/24 Session Number:: 19 Hypertension Hypertension Diagnosis:: Hypertension ICD-10 I10 Resting Blood Pressure:: 102/50 [place] [employer] Hypertension Guidelines Peak Exercise Blood Pressure:: 140/78 Change in medication: No Outcomes/Goals: Able to verbalize/achieve optimal blood pressure <130/80, Incorporates diet changes & exercise for blood pressure control by DC and Other additional outcomes/goals Interventions/plan: Instruct on optimal blood pressure, hypertension & medications, Instruct on effects of sodium, alcohol, stress, exercise &hypertension and Other additional plan/interventions 60 day Reassessments:: Met Exacerbation Mgmt & Airway Clearance Reassessment: Demonstrates knowledge of O2 Rx at rest, Demonstrates knowledge of O2 Rx with exercise and Using O2 as prescribed Medication Medication list reviewed:: Yes Taking medications 100% of the time:: Met Taking medications 100% of the time:: Met Diabetes Diabetes:: No Core Components - 90 DAYS Visit Session Number:: 19 Hypertension Hypertension Diagnosis:: Hypertension ICD-10 I10 Resting Blood Pressure:: 102/50 [place] [employer] Hypertension Guidelines Peak Exercise Blood Pressure:: 140/78 Outcomes/Goals: Able to verbalize/achieve optimal blood pressure <130/80, Incorporates diet changes & exercise for blood pressure control by DC and Other additional outcomes/goals Interventions/plan: Instruct on optimal blood pressure, hypertension & medications, Instruct on effects of sodium, alcohol, stress, exercise &hypertension and Other additional plan/interventions 90 day Reassessments:: Met Diabetes Diabetes:: No Core Components - Final Visit Session Number:: 19 Hypertension Hypertension Diagnosis:: Hypertension ICD-10 I10 Resting Blood Pressure:: 102/50 [place] [employer] Hypertension Guidelines Peak Exercise Blood Pressure:: 140/78 Outcomes/Goals: Able to verbalize/achieve optimal blood pressure <130/80, Incorporates diet changes & exercise for blood pressure control by DC and Other additional outcomes/goals Diabetes Diabetes:: No Patient Health Questionnaire PHQ-9 Screening 60-Day Re-eval Assessment: 1. Little interest or pleasure in doing things: Not at all 2. Feeling down, depressed, or hopeless: Not at all 3. Trouble falling or staying asleep, or sleeping too much: More than half the days 4. Feeling tired or having little energy: Nearly every day 5. Poor appetite or overeating: More than half the days 6. Feeling bad about yourself -- or that you are a failure or have let yourself or your family down: Several days 7. Trouble concentrating on things, such as reading the newspaper or watching television: Not at all 8. Moving or speaking so slowly that other people could have noticed. Or the opposite - being so fidgety or restless that you have been moving around a lot more than usual: Several days 9. Thoughts that you would be better off , or of hurting yourself in some way: Not at all How difficult have these problems made it for you to do your work, take care of things at home, or get along with other people?: Somewhat difficult Total Score: 9 Knowledge Questionaire (BCKQ) Information Information: [facility] COPD Knowledge Questionnaire (BCKQ) This questionnaire is designed to find out what you know about your lung problem. It should be completed without help form anyone else. This usually takes between 10 and 20 minutes. Your answers will help us to find out what information you need to help you to understand and manage your lung condition. Ruebn the [place] which you think is the correct answer. Self-Efficacy 6-Item Scale 60-Day Re-eval Assessment: We would like to know how confident you are in doing certain activities. Please select your confidence level for: Fatigue Select Number: 8 Physical Discomfort or Pain Select Number: 8 Emotional Distress Select Number: 8 Other Symptoms or Health Problems Select Number: 6 Different Tasks and Activities Select Number: 9 Medication Select Number: 8 Total Score:: 7 Nutrition Survey Nutrition Survey Instructions Scoring Instructions
[2024-06-14 09:03] VITALS: BP 102/50; BP 140/78; O2SAT 89; BMI 29.5
== END 2024-07-06 23:59 ==
LOC: PR 10:15
PROVIDERS: PCP Internal Medicine; Referring Provider Thoracic Surgery (Cardiothoracic Vascular Surgery); Visit Provider Thoracic Surgery (Cardiothoracic Vascular Surgery)
DX: J98.6 Disorders of diaphragm (principal)
CPT/HCPCS: 97150; G0239

== ENCOUNTER 2024-07-26 10:15 | Outpatient (RCR) | payer MEDICARE, OTHER, SELFPAY ==
[2024-06-14 09:03] VITALS: BMI 29.5
[2024-07-07 00:27] VITALS: BP 120/60; BP 126/64; BMI 29.5
--- NOTE | 2024-07-15 09:35 | PR.ITP_ITS ---
Exercise - Initial Assessment Visit Session Number:: 31 Physician Prescribed Exercise Modalities: Treadmill, Schwinn Airdyne AD-7 and SciFit Stepper Current METSs:: 3.3 Target HR:: 122 (93-122) Current RPD:: 2 Maximum Exercise HR:: 116 Resting Blood Pressure: 118/60 Maximum Exercise Blood Pressure: 160/80 Minimum SpO2 with exercise: 92 EKG Type: NSR to ST Nutrition/Wt Mgmt - Initial Visit Session Number:: 31 Weight Management Admit Height:: 5 ft 1.5 in Admit Weight:: 159 lb Admit BMI:: 29.5 Nutrition/Wt Mgmt - 30-Day Visit Date of Eval: 07/15/24 Session Number:: 31 Weight Management Height: 5 ft 1.5 in Weight:: 159 lb BMI: 29.5 Nutrition/Wt Mgmt - 60-Day Visit Session Number:: 31 Weight Management Height: 5 ft 1.5 in Weight:: 159 lb BMI: 29.5 Weight Goals Progress:: Goal met Nutrition/Wt Mgmt - 90-Day Visit Date of Eval: 07/15/24 Session Number:: 31 Weight Management Height: 5 ft 1.5 in Weight:: 159 lb BMI: 29.5 Weight Goals Progress:: Goal met Nutrition/Wt Mgmt - Final Visit Session Number:: 31 Weight Management Height: 5 ft 1.5 in Weight:: 159 lb BMI: 29.5 Psychosocial - Initial Assess Visit Session Number:: 31 Problems/Goals History of Emotional Disorders: None Intervention/Plan: See List Interventions/Plan:: Assess stressors,coping strategies & signs of derpression on admission, Instruct/assist pt to develop coping & personal stress Mgt strategies, Refer to Behavioral Health if appropriate, Refer to Physician if appropriate, Instruct patient to recognize signs & symptoms of depression, Instruct patient to recog and Other additional plan/intervention Psychosocial - 30-Day Visit Date of Eval: 07/15/24 Session Number:: 31 Problems/Goals History of Emotional Disorders: None Plan Interventions/Plan:: Assess stressors,coping strategies & signs of derpression on admission, Instruct/assist pt to develop coping & personal stress Mgt strategies, Refer to Behavioral Health if appropriate, Refer to Physician if appropriate, Instruct patient to recognize signs & symptoms of depression, Instruct patient to recog and Other additional plan/intervention Psychosocial - 60-Day Visit Session Number:: 31 Problems/Goals History of Emotional Disorders: None Plan Interventions/Plan:: Assess stressors,coping strategies & signs of derpression on admission, Instruct/assist pt to develop coping & personal stress Mgt strategies, Refer to Behavioral Health if appropriate, Refer to Physician if appropriate, Instruct patient to recognize signs & symptoms of depression, Instruct patient to recog and Other additional plan/intervention Psychosocial - 90-Day Visit Date of Eval: 07/15/24 Session Number:: 31 Problems/Goals History of Emotional Disorders: None Plan Interventions/Plan:: Assess stressors,coping strategies & signs of derpression on admission, Instruct/assist pt to develop coping & personal stress Mgt strategies, Refer to Behavioral Health if appropriate, Refer to Physician if appropriate, Instruct patient to recognize signs & symptoms of depression, Instruct patient to recog and Other additional plan/intervention Psychosocial - Final Assess Visit Session Number:: 31 Problems/Goals History of Emotional Disorders: None Plan Interventions/Plan:: Assess stressors,coping strategies & signs of derpression on admission, Instruct/assist pt to develop coping & personal stress Mgt strategies, Refer to Behavioral Health if appropriate, Refer to Physician if appropriate, Instruct patient to recognize signs & symptoms of depression, Instruct patient to recog and Other additional plan/intervention Oxygen & Oxygen Titration Init Visit Session Number:: 31 Initial Assessment SpO2:: 92 Oxygen & Oxygen Titration 30D Visit Date of Eval: 07/15/24 Session Number:: 31 Reassessment SpO2:: 92 Oxygen & Oxygen Titration 60D Visit Date of Eval: 07/15/24 Session Number:: 31 Reassessment SpO2:: 92 Oxygen & Oxygen Titration 90D Visit Date of Eval: 07/15/24 Session Number:: 31 Reassessment SpO2:: 92 Oxygen & Oxygen Titration KSENIA Visit Date of Eval: 07/15/24 Session Number:: 31 Reassessment SpO2:: 92 Core Components - Initial Visit Session Number:: 31 Hypertension Hypertension Diagnosis:: Hypertension ICD-10 I10 BP: 118/60 [place] [employer] Hypertension Guidelines Blood Pressure: 160/80 Outcomes/Goals: Able to verbalize/achieve optimal blood pressure <130/80, Incorporates diet changes & exercise for blood pressure control by DC and Other additional outcomes/goals Tobacco - Initial Assessment Tobacco Program Goals Tobacco Use: Non-smoker Diabetes Diabetes:: No Core Components - 30 DAYS Visit Date of Eval: 07/15/24 Session Number:: 31 Hypertension Hypertension Diagnosis:: Hypertension ICD-10 I10 Resting Blood Pressure:: 118/60 [place] [employer] Hypertension Guidelines Peak Exercise Blood Pressure:: 160/80 Outcomes/Goals: Able to verbalize/achieve optimal blood pressure <130/80, Incorporates diet changes & exercise for blood pressure control by DC and Other additional outcomes/goals Interventions/plan: Instruct on optimal blood pressure, hypertension & medications, Instruct on effects of sodium, alcohol, stress, exercise &hyperte nsion and Other additional plan/interventions 30 day Reassessments:: Met Tobacco - 30-Day Tobacco Program Goals Tobacco Use: Non-smoker Exacerbation Mgmt & Airway Clearance Bronchial Hygiene Plan: Yes: Pt demonstrates correctly for effective cough, Yes: Pt demo correct for CPT, Yes: Pt demo correct for device, Yes: Pt demo correct for NS nasal spray, Yes: Pt demo correct for sputum management, Yes: Pt demo correct for improved hydration, Yes: Pt demo correct for hand hygiene, Yes: Pt demo correct for evalute sputum, Yes: Pt demo correct for verbalize when to call MD and Yes: Pt demo correct for cleaning of respiratory equipment Diabetes Diabetes:: No Core Components - 60 DAYS Visit Session Number:: 31 Hypertension Hypertension Diagnosis:: Hypertension ICD-10 I10 Resting Blood Pressure:: 118/60 [place] [employer] Hypertension Guidelines Peak Exercise Blood Pressure:: 160/80 Outcomes/Goals: Able to verbalize/achieve optimal blood pressure <130/80, Incorporates diet changes & exercise for blood pressure control by DC and Other additional outcomes/goals Interventions/plan: Instruct on optimal blood pressure, hypertension & medications, Instruct on effects of sodium, alcohol, stress, exercise &hypertension and Other additional plan/interventions 60 day Reassessments:: Met Tobacco - 60-Day Tobacco Program Goals Tobacco Use: Non-smoker Exacerbation Mgmt & Airway Clearance Bronchial Hygiene Plan: Yes: Pt demonstrates correctly for effective cough, Yes: Pt demo correct for CPT, Yes: Pt demo correct for device, Yes: Pt demo correct for NS nasal spray, Yes: Pt demo correct for sputum management, Yes: Pt demo correct for improved hydration, Yes: Pt demo correct for hand hygiene, Yes: Pt demo correct for evalute sputum, Yes: Pt demo correct for verbalize when to call MD and Yes: Pt demo correct for cleaning of respiratory equipment Diabetes Diabetes:: No Core Components - 90 DAYS Visit Date of Eval: 07/15/24 Session Number:: 31 Hypertension Hypertension Diagnosis:: Hypertension ICD-10 I10 Resting Blood Pressure:: 118/60 [place] [employer] Hypertension Guidelines Peak Exercise Blood Pressure:: 160/80 Outcomes/Goals: Able to verbalize/achieve optimal blood pressure <130/80, Incorporates diet changes & exercise for blood pressure control by DC and Other additional outcomes/goals Interventions/plan: Instruct on optimal blood pressure, hypertension & medications, Instruct on effects of sodium, alcohol, stress, exercise &hypertension and Other additional plan/interventions 90 day Reassessments:: Met Tobacco - 90-Day Tobacco Program Goals Tobacco Use: Non-smoker Exacerbation Mgmt & Airway Clearance Reassessment: Using O2 as prescribed Bronchial Hygiene Plan: Yes: Pt demonstrates correctly for effective cough, Yes: Pt demo correct for CPT, Yes: Pt demo correct for device, Yes: Pt demo correct for NS nasal spray, Yes: Pt demo correct for sputum management, Yes: Pt demo correct for improved hydration, Yes: Pt demo correct for hand hygiene, Yes: Pt demo correct for evalute sputum, Yes: Pt demo correct for verbalize when to call MD and Yes: Pt demo correct for cleaning of respiratory equipment Medication Medication list reviewed:: Yes Taking medications 100% of the time:: Met Diabetes Diabetes:: No Core Components - Final Visit Session Number:: 31 Hypertension Hypertension Diagnosis:: Hypertension ICD-10 I10 Resting Blood Pressure:: 118/60 [place] [employer] Hypertension Guidelines Peak Exercise Blood Pressure:: 160/80 Outcomes/Goals: Able to verbalize/achieve optimal blood pressure <130/80, Incorporates diet changes & exercise for blood pressure control by DC and Other additional outcomes/goals Tobacco - Final Tobacco Program Goals Tobacco Use: Non-smoker Exacerbation Mgmt & Airway Clearance Bronchial Hygiene Plan: Yes: Pt demonstrates correctly for effective cough, Yes: Pt demo correct for CPT, Yes: Pt demo correct for device, Yes: Pt demo correct for NS nasal spray, Yes: Pt demo correct for sputum management, Yes: Pt demo correct for improved hydration, Yes: Pt demo correct for hand hygiene, Yes: Pt demo correct for evalute sputum, Yes: Pt demo correct for verbalize when to call MD and Yes: Pt demo correct for cleaning of respiratory equipment Diabetes Diabetes:: No Patient Health Questionnaire PHQ-9 Screening 90-Day Re-eval Assessment: 1. Little interest or pleasure in doing things: Not at all 2. Feeling down, depressed, or hopeless: Not at all 3. Trouble falling or staying asleep, or sleeping too much: More than half the days 4. Feeling tired or having little energy: Nearly every day 5. Poor appetite or overeating: More than half the days 6. Feeling bad about yourself -- or that you are a failure or have let yourself or your family down: Several days 7. Trouble concentrating on things, such as reading the newspaper or watching television: Not at all 8. Moving or speaking so slowly that other people could have noticed. Or the opposite - being so fidgety or restless that you have been moving around a lot more than usual: Several days 9. Thoughts that you would be better off , or of hurting yourself in some way: Not at all How difficult have these problems made it for you to do your work, take care of things at home, or get along with other people?: Somewhat difficult Total Score: 9 Knowledge Questionaire (BCKQ) Information Information: [facility] COPD Knowledge Questionnaire (BCKQ) This questionnaire is designed to find out what you know about your lung problem. It should be completed without help form anyone else. This usually takes between 10 and 20 minutes. Your answers will help us to find out what information you need to help you to understand and manage your lung condition. Ruben the [place] which you think is the correct answer. Self-Efficacy 6-Item Scale 90-Day Re-eval Assessment: We would like to know how confident you are in doing certain activities. Please select your confidence level for: Fatigue Select Number: 8 Physical Discomfort or Pain Select Number: 8 Emotional Distress Select Number: 8 Other Symptoms or Health Problems Select Number: 6 Different Tasks and Activities Select Number: 9 Medication Select Number: 8 Total Score:: 7 Nutrition Survey Nutrition Survey Instructions Scoring Instructions
[2024-07-15 09:47] VITALS: BP 118/60; BP 160/80; O2SAT 92; BMI 29.5
== END 2024-08-05 23:59 ==
LOC: PR 10:15
PROVIDERS: PCP Internal Medicine; Referring Provider Thoracic Surgery (Cardiothoracic Vascular Surgery); Visit Provider Thoracic Surgery (Cardiothoracic Vascular Surgery)
DX: J98.6 Disorders of diaphragm (principal)
CPT/HCPCS: 97150; G0239

== ENCOUNTER 2024-08-07 12:00 | Outpatient (RCR) | payer MEDICARE, OTHER, SELFPAY ==
[2024-06-14 09:03] VITALS: BMI 29.5
[2024-07-15 09:47] VITALS: BMI 29.5
--- NOTE | 2024-07-16 13:13 | HP.OTEVAL ---
Patient's Visit Information Visit Information Visit Information: NEY WEINBERG is a 79 year old F, referred to Occupational Therapy by Dr. Loy Blackwood MD, with a diagnosis of tear of ulnar collateral ligament and partial tear of common extensor tendo. Date of Evaluation: 07/15/24 Occupational Therapist: Josephine Harper, DELMER/Maxwell, CHT Subjective Subjective: this 79-year-old female arrives with dx of tear of ulnar collateral ligament and partial tear of common extensor tendon of left elbow. Pt fell 03/06/24, had wrist pain and went to hospital. saw doctor 03/07/24, ORIF left distal radius surgery 03/11/24 and OT for wrist prior. Due to current thoracic pulmonary issues pt is seeing doctor for possible surgery prior to elbow surgery- until then will complete OT therapy services to work on improving shoulder ROM and soft tissue structure of left UE to limit stress on UCL and common extensor tendon. Pt experiencing 4/10 pain in L elbow and visible bruising on the elbow. pt difficulty with daily functional tasks including doing dishes, folding laundry, vacuuming, getting dressed, washing hair, outdoor tasks. Pain L elbow: Current Pain Intensity: 4 Pain Intensity Range: 8 Objective Objective/Observation: pt visible bruising of L elbow ROM Shoulder: L 0/104 R 0/160 Elbow: L -13/137 R 0/150 Forearm: WFL Wrist: L 65/30 R 65/50 Strength Shoulder: L ex 4+ L flex 4 R ex 5 R flex 5 Elbow: L ex 4- flex 4- R ex 5 R flex 5 Heel Seat Fitter: L 16# R 47# Lateral Pinch: L 5# R 9# Tripod Pinch: L 4# R 8# Strength Comments: pt demo with weak left reimbursement director and pinch strength Quick DASH-Disab of Arm,Shoulder& Hand Quick DASH Score: 63.6350 Goals Goal:: pt to increase L shoulder strength equal to or greater than non-affected side in order to complete daily functional tasks. pt to increase L elbow strength equal to or greater than non-affected side in order to complete daily functional tasks. pt to increase L reimbursement director strength by 20# or more in order to complete daily functional tasks. Goal:: pt to increase L shoulder flexion by 30* or more in order to complete self-care and other daily functional tasks. Goal:: pt will report 0/10 pain when completing ADLs/IADLs by end of POC. Goal:: pt will demo 100% adherence to joint protection techniques when completing ADLs/IADLs by end of POC. Goal:: pt will report increase I with all ADLs/IADLs by end of POC. Goal:: pt will report 75% decrease in bruising in left elbow by end of POC. Goal:: pt will improve QuickDASH score by 30 points or more to maximize use of LUE. (63.63) Rehabilitation General Assessment: this 79-year-old female arrives with dx of tear of ulnar collateral ligament and partial tear of common extensor tendon of left elbow. pt demo bruising L elbow and pain, pt also demo limited L shoulder ROM and LUE strength impacting pt ability to complete daily functional tasks including doing dishes, folding laundry, vacuuming, getting dressed, washing hair, outdoor tasks. pt recommended to complete OT services 2x a week for 4 weeks to address above impairments. Therapy session was directly supervised and doc. approved by Josephine Harper OTR/Maxwell,CHT. Rehabilitation Potential: Good Anticipated Interventions Anticipated Interventions: A/AAROM/PROM, Strengthening, Joint Protection/Energy Conservation, Ergonomic Education, Education re assistive Equipment, Education re Diagnosis and Home Program Visit Plan Frequency: 1x/Week Duration: 4 Weeks General Plan: decrease pain improve ROM postural and shoulder stabilization increase strength use wrist/hand/arm normally again TEXT: Thank you for the opportunity to evaluate your patient. For Medicare and Medicare HMO plans, please review the plan of care and approve it. It will need to be FAXED BACK to us at [phone] for Medicare purposes. Please let me know if there are questions or concerns regarding this plan of care. Physician Signature: Date:
--- NOTE | 2024-08-07 12:35 | HP.OTDCSUM_ITS ---
Discharge Summary D/C Summary: It has been my pleasure to treat NEY WEINBERG under orders from Dr. Loy Blackwood MD, for the diagnosis of tear of ulnar collateral ligament and partial tear of common extensor tendo for a total of 5 visit(s). Please see the following information for a summary of their discharge status. Overall Improvement % Improvement: 50 Goals Patient Goals: Regain Strength, Decrease Pain, Use Hand/Wrist/Arm Normally Again, Increase ROM, Be More Independent in ADLS, Resume Former Household Responsibilities (Cooking,Cleaning,Yard, etc.) and Resume Hobbies Goal:: pt to increase L shoulder strength equal to or greater than non-affected side in order to complete daily functional tasks. L5.9 pounds NOT MET however progressed from 4 pounds at eval pt to increase L elbow strength equal to or greater than non-affected side in order to complete daily functional tasks. NOT MET pt to increase L nursing attendant strength by 20# or more in order to complete daily functional tasks. L 30# GOAL MET Goal:: pt to increase L shoulder flexion by 30* or more in order to complete self-care and other daily functional tasks. now 130 degrees GOAL MET Goal:: pt will report 0/10 pain when completing ADLs/IADLs by end of POC. GOAL MET Goal:: pt will demo 100% adherence to joint protection techniques when comple ting ADLs/IADLs by end of POC. GOAL MET Goal:: pt will report increase I with all ADLs/IADLs by end of POC. NOT MET difficulty with IADL tasks Goal:: pt will report 75% decrease in bruising in left elbow by end of POC. no bruising GOAL MET Goal:: pt will improve QuickDASH score by 30 points or more to maximize use of LUE. (63.63) now 27.27 GOAL MET Plan Plan: AROM/AAROM/PROM pain management joint protectoin shoulder stabilization D/C Information Discharge Comments: this 79 year old female seen with dx of tear of ulnar collatoral lig/extensor tendon of L elbow. pt progressed in POC with strength as well as ROM pt with improvements in bruising as well as pain throughout POC. discharge at this time last scheduled visit and pt to have surgery 08/19/24. pt has home isometrics to perform for carryover. d/c sentence: If there are questions or concerns regarding this patient's occupational therapy, please fell free to call me at [phone]. Thank you for the referral of this patient. Sincerely, Emerald Barrett
--- NOTE | 2024-08-07 12:35 | HP.OT.NRP ---
Patient Information Patient Information: NEY WEINBERG was seen in my office for initial evaluation on 07/15/24. The following Plan of Care was established for this patient: POC Established Initial Frequency: 1x/Week Initial Duration: 4 Weeks Plan: AROM/AAROM/PROM pain management joint protectoin shoulder stabilization Anticipated Interventions Anticipated Interventions: A/AAROM/PROM, Strengthening, Joint Protection/Energy Conservation, Ergonomic Education, Education re assistive Equipment, Education re Diagnosis and Home Program Last Seen Last Seen: This patient was last seen in our office 08/07/24. Pertinent comments regarding their Occupational therapy will appear below: This 79 year old female seen for dx of tear of u;lnar collatoral lig/extensor tendon of L elbow. pt with progress throughout POC in strength, ROM, pain as well as reduction in bruising of L elbow. pt last scheduled visit this date and plan to have surgery 08/19/24. pt to continue with shoulder isometrics at home. At this point I will be discontinuing this patient from occupational therapy. I would be happy to see this patient again in the future if found appropriate by the physician. Thank you! Emerald Barrett
== END 2024-08-07 19:00 | disposition home or self-care (01) ==
LOC: OT 12:00
PROVIDERS: PCP Internal Medicine; Referring Provider Orthopaedic Surgery; Visit Provider Orthopaedic Surgery
DX: S53.442D Ulnar collateral ligament sprain of left elbow, subsequent encounter (principal); S56.512D Strain of other extensor muscle, fascia and tendon at forearm level, left arm, subsequent encounter
CPT/HCPCS: 97110; 97140; 97165; 97166; 97530

== ENCOUNTER 2024-10-21 11:30 | Outpatient (RCR) | payer MEDICARE, OTHER, SELFPAY ==
[2024-07-15 09:47] VITALS: BMI 29.5
--- NOTE | 2024-09-26 12:39 | HP.OTEVAL_ITS ---
Patient's Visit Information Visit Information Visit Information: NEY WEINBERG is a 79 year old F, referred to Occupational Therapy by Dr. Loy Blackwood MD, with a diagnosis of left tear of UCL left elbow. Date of Evaluation: 09/26/24 Occupational Therapist: Josephine Harper, DELMER/Maxwell, CHT Subjective Subjective: This 79 year old female was seen for OT eval with dx of tear of collateral ligament of left elbow- pt has been seen in our facility in past following her wrist sx March 2024. Due to continued pain of left elbow MRI completed and was found to have UCL tear. Due to pain pt decided to under go sx. pt underwent sx on 08/19/24: Left elbow ulnar collateral ligament repair- left elbow ulnar nerve release with anterior transposition- left elbow flexor pronator muscle repair with flexor pronator Z-lengthening - left elbow common extensor tendon repair order for therapy was dated on 09/12/24 advised eval & treat -progress as tolerated - continue current pain relief- ADLs and manual /STM wean elbow orthosis at 4 weeks post op wean forearm bivavle orthosis at six weeks post op Pt is attempting to do all ADLs one handed as her work long hours. pt is ready to start getting her therapy started. ADLs Comments: helps with dressing pt drove IND pt states all activities are challenging due to her orthosis and limited ROM- pt is wearing orthosis at all times and sleeping on couch to increase comfort. Pain left arm: Current Pain Intensity: 5 Pain Intensity Range: 3 and 5 ROM Elbow: right 0/145 left -30/105 Forearm: sup/pron right WNL left supination 35 pronation 40 Wrist: right 65/70 left 40/30 ROM Comments: pt demo demo full composite fist and opposition pt performed all ROM testing without pain Strength Strength Comments: will test later date Sensation Sensation Comments: denies Quick DASH-Disab of Arm,Shoulder& Hand Quick DASH Score: 65.9075 Goals Goal:100% adherence to protocol: Yes Goal:Daily scar massage when approriate: Yes Goal:ROM equal to unaffected hand: Yes Goal:[employer]/Pinch strength at least 75% of unaffected hand: Yes Comment: will not initiate until week [address] dean Goal:No pain with affected hand use: Yes Goal:Full use of affected hand in daily activities including work: Yes Other Goal: orthosis use: pt will demo understanding of using orthosis and skin care precautions by end of 1st session. Rehabilitation General Assessment: Pt arrives for 1st therapy session s/p 5 weeks and 3 days following sx. Repair of left UCL, ulnar nerve release with anterior transposi tion- left elbow flexor pronator muscle repair with flexor pronator z- lengthening- left elbow Common Extensor Tendon repair. Due to newly healing structure pt is limited with functional ROM, and use of left UE with any daily tasks. pt would benefit from further skilled OT services 1-2x week for 6-8 weeks. Today therapist ed. pt on AROM of elbow flex/ext. and initiate of light forearm and wrist ROM avoiding pain. Rehabilitation Potential: Good Anticipated Interventions Anticipated Interventions: A/AAROM/PROM, Strengthening, Scar Care, Triggerpoint Release, Sensory Retraining, Modalities, Orthoses, Joint Protection/Energy Conservation, Ergonomic Education, Education re assistive Equipment, Education re Diagnosis and Home Program Visit Plan Frequency: 1-2x /Week Duration: 4-6 Weeks General Plan: progress ROM as tolerated ed. pt to avoid any tasks that increases pts pain- light ADOs and manual/STM. post op week 4 wean elbow orthosis post op week 6 ween bivalve orthosis TEXT: Thank you for the opportunity to evaluate your patient. For Medicare and Medicare HMO plans, please review the plan of care and approve it. It will need to be FAXED BACK to us at [phone] for Medicare purposes. Please let me know if there are questions or concerns regarding this plan of care. Physician Signature: Date:
--- NOTE | 2024-10-07 11:00 | OTREVAL_ITS ---
Re-Evaluation Intro: Dr. oLy Blackwood MD, It has been my pleasure to treat NEY WEINBERG over the last 3 visits for left tear of UCL left elbow. Please see the progress note below for an update on the occupational therapy plan of care! Subjective Subjective: pt arrives 6 weeks and 6 days s/p from Left elbow ulnar collateral ligament repair- left elbow ulnar nerve release with anterior transposition- left elbow flexor pronator muscle repair with flexor pronator Z-lengthening - left elbow common extensor tendon repair Objective Objective/Function: left forearm supination 55* left forearm pronation 65 left wrist 40/35 left elbow -15/125 left can inspector strength 10# pt is making gains with her ROM pt is transitioning out of her braces as she is comfortable. Plan Plan Frequency: 1-2x /Week Duration: 4-6 Weeks Plan: order for therapy was dated on 09/12/24 advised eval & treat -progress as tolerated - continue current pain relief- ADLs and manual /STM wean elbow orthosis at 4 weeks post op wean forearm bivavle orthosis at six weeks post op Goals Goals Patient Goals: Regain Mobility, Regain Strength, Improve Fine Motor Skills, Use Hand/Wrist/Arm Normally Again and Resume Former Household Responsibilities (Cooking,Cleaning,Yard, etc.) Goal:100% adherence to protocol: Yes Goal:Daily scar massage when approriate: Yes Goal:ROM equal to unaffected hand: Yes Goal:Audiology Technician/Pinch strength at least 75% of unaffected hand: Yes Goal:No pain with affected hand use: Yes Goal:Full use of affected hand in daily activities including work: Yes Other Goal: orthosis use: pt will demo understanding of using orthosis and skin care precautions by end of 1st session. Anticipated Interventions Anticipated Interventions Anticipated Interventions: A/AAROM/PROM, Strengthening, Scar Care, Triggerpoint Release, Sensory Retraining, Modalities, Orthoses, Joint Protection/Energy Conservation, Ergonomic Education, Education re assistive Equipment, Education re Diagnosis and Home Program Re-Evaluation Ending Re-evaluation ending: Please do not hesitate to contact me at [phone] by phone or Fax: if you have questions or concerns regarding this new plan of care! Sincerely, Josephine Harper, OTR/L, CHT
--- NOTE | 2025-03-13 08:31 | HP.OT.NRP ---
Patient Information Patient Information: NEY WEINBERG was seen in my office for initial evaluation on 09/26/24. The following Plan of Care was established for this patient: POC Established Initial Frequency: 1-2x /Week Initial Duration: 4-6 Weeks Plan: order for therapy was dated on 09/12/24 advised eval & treat -progress as tolerated - continue current pain relief- ADLs and manual /STM wean elbow orthosis at 4 weeks post op wean forearm bivavle orthosis at six weeks post op Anticipated Interventions Anticipated Interventions: A/AAROM/PROM, Strengthening, Scar Care, Triggerpoint Release, Sensory Retraining, Modalities, Orthoses, Joint Protection/Energy Conservation, Ergonomic Education, Education re assistive Equipment, Education re Diagnosis and Home Program Last Seen Last Seen: This patient was last seen in our office 10/21/25. Pertinent comments regarding their Occupational therapy will appear below: pt last seen on 10/21/24 following a UCL repair. pt has not scheduled further apts and at this time is d/c due to time lapse in services. At this point I will be discontinuing this patient from occupational therapy. I would be happy to see this patient again in the future if found appropriate by the physician. Thank you! Josephine Harper, OTR/L, CHT
== END 2024-10-21 19:00 | disposition home or self-care (01) ==
LOC: OT 11:30
PROVIDERS: PCP Internal Medicine; Referring Provider Orthopaedic Surgery; Visit Provider Orthopaedic Surgery
DX: S53.442D Ulnar collateral ligament sprain of left elbow, subsequent encounter (principal)
CPT/HCPCS: 97110; 97140; 97166; 97530